=== PATIENT | male | born 1960 | race Hispanic/Latino ===

== ENCOUNTER 2017-03-25 15:08 | Inpatient (IN) | payer MEDICARE, OTHER ==
[~2017-03-25] VITALS: Ht 180.3 cm; Wt 76.2 kg
[2017-03-25 15:37] LABS: BASOPHILS # (AUTO) 0.1 (0.0-0.1); BASOPHILS % 0.4 % (0.0-1.0); EOSINOPHILS # (AUTO) 0.1 (0.0-0.4); EOSINOPHILS % 0.9 % (0.0-6.0); HEMATOCRIT 30.4 % (38.2-49.6); LYMPHOCYTES # (AUTO) 1.4 (1.0-3.2); LYMPHOCYTES % 10.6 % (18.0-39.1); MEAN CORPUSCULAR HEMOGLOBIN 29.5 pg (28-32); MEAN CORPUSCULAR HGB CONC 32.9 g/dL (31-35); MEAN CORPUSCULAR VOLUME 89.7 fL (81-99); MONOCYTES # (AUTO) 0.9 (0.2-0.8); MONOCYTES % 6.8 % (4.4-11.3); NEUTROPHILS # (AUTO) 10.4 (2.1-6.9); NEUTROPHILS % 80.8 % (38.7-80.0); PLATELET COUNT 214 x10e3/uL (140-360); RED BLOOD COUNT 3.39 x10e6/uL (4.3-5.7); RED CELL DISTRIBUTION WIDTH 13.5 % (11.7-14.4)
[2017-03-25 15:41] LABS: INR 0.95; PROTHROMBIN TIME 13.2 seconds (11.9-14.5)
[2017-03-25 15:42] LABS: PARTIAL THROMBOPLASTIN TIME 37.2 seconds (23.8-35.5)
[2017-03-25 15:51] LABS: ALBUMIN 3.1 g/dL (3.5-5.0); ALBUMIN/GLOBULIN RATIO 0.8 (0.8-2.0); ANION GAP 14.4 mmol/L (8-16); CALCIUM 8.2 mg/dL (8.4-10.2); CREATININE, SERUM 3.7 mg/dL (0.72-1.25); POTASSIUM 4.4 mmol/L (3.5-5.1)
[2017-03-25 15:53] LABS: CREATINE KINASE MB 2.5 ng/mL (0.00-5.00); TROPONIN I 0.027 ng/mL (0-0.300)
--- NOTE | 2017-03-25 16:28 | Diagnostic Imaging Report ---
PROCEDURE: A single AP view of the chest. COMPARISON: None. INDICATIONS: SHORTNESS OF BREATH FINDINGS: Lines/tubes: None. Lungs: The lungs are well inflated and clear. There is no evidence of pneumonia or pulmonary edema. Pleura: There is no pleural effusion or pneumothorax. Heart and mediastinum: The heart and the mediastinum are unremarkable. Bones: No acute bony abnormality. IMPRESSION: 1. No acute cardiopulmonary abnormalities. Krishna Barba M.D. Dictated by: Krishna Barba M.D. on 03/25/2017 at 16:35 Electronically approved by: Krishna Barba M.D. on 03/25/2017 at 16:35
[2017-03-25] MEDS ORDERED: LIDOCAINE HCL 2% LOCAL INJ 5 ML SDV VIAL INJ ONE (17:03)
[2017-03-25] MEDS ORDERED: PROPOFOL IV EMULSION 10 MG/ML 20 ML VIAL ONE (17:03)
[2017-03-25] MEDS ORDERED: FENTANYL CITRATE/PF 100MCG/2 ML INJ ONE (17:40)
[2017-03-25] MEDS ORDERED: CLONIDINE HCL 0.2 MG TAB PO ONE (17:45)
[2017-03-25] MEDS ORDERED: MIRTAZAPINE15 MG PO (17:59)
[2017-03-25] MEDS ORDERED: LUMIGAN2.5 M1 OP (17:59)
[2017-03-25] MEDS ORDERED: COMBIGAN EYE DRO5 ML OP (17:59)
[2017-03-25] MEDS ORDERED: GLIPIZIDE5 MG PO (17:59)
[2017-03-25] MEDS ORDERED: AMLODIPINE BESYL5 MG PO (17:59)
[2017-03-25] MEDS ORDERED: ATORVASTATIN CA20 MG PO (17:59)
[2017-03-25] MEDS ORDERED: FUROSEMIDE40 MG PO (17:59)
[2017-03-25] MEDS ORDERED: [UNRECOGNIZED DRUG - OTHER] PO (17:59)
[2017-03-25] MEDS ORDERED: FLUDROCORTISON0.1 MG PO (17:59)
[2017-03-25] MEDS ORDERED: MIRTAZAPINE30 MG PO (17:59)
[2017-03-25] MEDS ORDERED: ZOFRAN ODT4 MG PO (17:59)
[2017-03-25] MEDS ORDERED: VITAMIN B-12 SC (17:59)
[2017-03-25] MEDS ORDERED: CARVEDILOL3.125 MG PO (17:59)
[2017-03-25 18:25] LABS: BILIRUBIN,URINE NEGATIVE (NEGATIVE); CLARITY,URINE CLEAR (CLEAR); COLOR,URINE YELLOW (YELLOW); KETONES,URINE NEGATIVE (NEGATIVE); LEUKOCYTE ESTERASE ,URINE NEGATIVE (NEGATIVE); NITRITE,URINE NEGATIVE (NEGATIVE); PROTEIN,URINE DIPSTICK 3+ (NEGATIVE); URINE UROBILINOGEN 0.2 mg/dL (0.2 - 1)
[2017-03-25 18:35] LABS: AMORPHOUS SEDIMENT,URINE MODERATE (FEW); BACTERIA,URINE RARE /HPF; RBC,URINE 0-5 /HPF (0-5); WBC,URINE (MAN) 0-5 /HPF (0-5)
[2017-03-25] MEDS ORDERED: HYDRALAZINE HCL 20 MG/ML VIAL IV STA (18:59)
[2017-03-25] MEDS ORDERED: DEXTROSE 50% SYRINGE 50 ML IV PRN (19:15)
[2017-03-25] MEDS ORDERED: ONDANSETRON HCL INJ 2 MG/ML VIAL IV PRN (19:15)
--- NOTE | 2017-03-25 19:55 | Diagnostic Imaging Report ---
Examination: CT of the Head without Contrast History:Trauma from fall Comparison studies:MRI brain, 06/12/[address] face, 09/09/2014 Technique: Axial images were obtained from the skull base to the vertex. Coronal and sagittal images reconstructed from the axial data. Intravenous contrast: None Findings: Scalp/skull: No abnormalities. Extra-axial spaces: No masses. No fluid collections. Brain sulci: Mildly prominent. Ventricles: Mild compensatory dilatation. No hydrocephalus. Parenchyma: Again demonstrated are confluent areas of hypoattenuation in the periventricular and subcortical and pontine white matter, nonspecific. There are CSF equal density lesions in the right thalamocapsular region and left thalamus. Sellar/suprasellar region: No abnormalities. Craniocervical junction: Patent foramen magnum. No Chiari one malformation. Incidental findings: Atherosclerotic calcification of the cavernous and supraclinoid internal carotid and V4 segments of the bilateral vertebral arteries. . Impression: 1. No new or acute abnormalities. No change from prior brain MRI performed June 07, 2015 when accounting for differences in technique. 2. Mild generalized volume loss. 3. Moderate white matter changes, related to patient's history of multiple sclerosis. 4. Chronic changes in the right thalamocapsular region and left thalamus, which could be related to gliotic phase of demyelinating disease. The images and preliminary report were reviewed and signed by Dr. Citlalli Azar, neuroradiology faculty, on 03/25/2017 at 1951 hours. Signed by: Dr. Citlalli Azar M.D. on 03/25/2017 7:51 PM
[2017-03-25] MEDS: SODIUM CHLORIDE 0.9% 1000ML 1,000 ML IV SCH (20:30)
[2017-03-25] MEDS: INSULIN REGULAR, HUMAN 100 UNIT/1 ML 3ML VIAL SQ SCH (21:00)
[2017-03-25 21:10] VITALS: BP 161/89
[2017-03-25 21:20] VITALS: BP 161/89
[2017-03-26] VITALS (7 sets, daily range): BP systolic 142–191; BP diastolic 58–103
[2017-03-26] MEDS: SODIUM CHLORIDE 0.9% 1000ML 1,000 ML IV SCH ×4 (03:58→22:30)
[2017-03-26 06:32] LABS: BASOPHILS % 0.4 % (0.0-1.0); EOSINOPHILS # (AUTO) 0.1 (0.0-0.4); EOSINOPHILS % 1.1 % (0.0-6.0); HEMATOCRIT 30.1 % (38.2-49.6); HEMOGLOBIN 9.9 g/dL (14.0-18.0); LYMPHOCYTES # (AUTO) 0.8 (1.0-3.2); LYMPHOCYTES % 8.4 % (18.0-39.1); MEAN CORPUSCULAR HEMOGLOBIN 29.6 pg (28-32); MEAN CORPUSCULAR HGB CONC 32.9 g/dL (31-35); MEAN CORPUSCULAR VOLUME 89.9 fL (81-99); MONOCYTES # (AUTO) 0.6 (0.2-0.8); MONOCYTES % 6.7 % (4.4-11.3); NEUTROPHILS # (AUTO) 7.8 (2.1-6.9); NEUTROPHILS % 82.7 % (38.7-80.0); PLATELET COUNT 199 x10e3/uL (140-360); RED BLOOD COUNT 3.35 x10e6/uL (4.3-5.7); RED CELL DISTRIBUTION WIDTH 13.6 % (11.7-14.4)
[2017-03-26 06:54] LABS: ANION GAP 11.9 mmol/L (8-16); CALCIUM 7.9 mg/dL (8.4-10.2); CREATININE, SERUM 3.48 mg/dL (0.72-1.25); POTASSIUM 3.9 mmol/L (3.5-5.1)
[2017-03-26] MEDS: INSULIN REGULAR, HUMAN 100 UNIT/1 ML 3ML VIAL SQ SCH ×4 (07:30→21:00)
[2017-03-26] MEDS: AMLODIPINE BESYLATE 5 MG TAB PO SCH (12:15)
[2017-03-26] MEDS ORDERED: GLIPIZIDE 5 MG TAB PO SCH (12:15)
--- NOTE | 2017-03-26 13:38 | History and Physical ---
PRIMARY CARE PROVIDER: Dr. Carter CHIEF COMPLAINT: Acute kidney injury. HISTORY OF PRESENT ILLNESS: Mr. Edge is a 56-year-old gentleman who got a call from the clinic after having routine blood work and was told his kidneys were failing, and he needed to come to the ER for evaluation. REVIEW OF SYSTEMS: He denies fever, chills or weight loss. He does have generalized weakness. He denies shortness of breath, wheezing or cough. He denies chest pain or palpitations. He denies abdominal pain, nausea, vomiting or melena. He denies dysuria or flank pain. He denies rash or pruritus. He denies joint pain or swelling. He denies bleeding or bruising. He denies headache, vertigo or loss of consciousness. He has generalized weakness and some difficulty swallowing. He denies depression, agitation, homicidal or suicidal ideation. PAST MEDICAL HISTORY: Significant for longstanding hypertension, type-2 diabetes and multiple sclerosis. He denies any history of heart disease. MEDICATIONS: His regular medications include: 1. Norvasc 5 mg daily. 2. Coreg 6.25 mg twice daily. 3. Lipitor 40 mg at bedtime. 4. Glaucoma eye drops, Lumigan and Combigan. 5. Glipizide 2.5 mg daily. 6. Remeron 15 mg at bedtime. 7. Lasix 20 mg daily. 8. Florinef 0.1 mg daily. 9. Zinbryta 150 mg monthly for the multiple sclerosis. SURGICAL HISTORY: The patient has no significant surgical history. ALLERGIES: HE HAS NO KNOWN DRUG ALLERGIES. FAMILY HISTORY: Remarkable for some scattered hypertension and diabetes. SOCIAL HISTORY: He is a nonsmoker. The patient is mostly bedbound. He has unsteady gait. He is and bilingual, but Macedonian is his primary language. He does speak a fair amount of Bruneian. He does not smoke, drink or use illegal drugs, again mostly bedbound, requiring a lot of assistance for most activities. PHYSICAL EXAMINATION PSYCHIATRIC: He is alert and oriented times 3 with normal mood and affect. CONSTITUTIONAL: He has a normal body habitus. He is in no acute distress. VITAL SIGNS: Blood pressure 146/90. Pulse 85 and regular. Respiratory rate 17. O2 sat 97%. Temperature 97.9. HEENT: Head is atraumatic. His eyes are anicteric with clear conjunctivae. Ears and nares are without erythema or discharge. Oropharynx is clear. NECK: Supple with no mass or thyromegaly. LYMPHATIC SYSTEM: He has no palpable cervical, axillary or inguinal adenopathy. CARDIOVASCULAR: His heart has a regular rate and rhythm without murmur or extra heart sound. He has no carotid bruit. He has no peripheral edema. He has palpable dorsal pedal pulses. RESPIRATORY: Lungs are clear to auscultation and percussion with normal respiratory effort. GASTROINTESTINAL: Abdomen is soft without organomegaly, masses or tenderness. He has normal bowel sounds present. CUTANEOUS: Skin is warm and dry to touch with no rash or skin breakdown. NEUROLOGIC: Exam is nonfocal. He does have some generalized weakness and some dysphagia and dysarthria. DIAGNOSTIC STUDIES: Chest x-ray shows no acute disease. CT scan of brain shows diffuse white matter changes consistent with multiple sclerosis. UA is clear. Initial troponin is 0.027. His initial chemistry showed normal electrolytes, CO2 24, creatinine 114, glucose 3.70, BUN 39, calcium 8.4, and GFR 17. IMPRESSION AND PLAN 1. Acute kidney injury on chronic kidney disease, stage 3, during the past 2 weeks. Will increase the IV fluids. Will continue with IV hydration. Nephrology has been consulted to assess whether the patient's kidney function will return or not. 2. Multiple sclerosis with possible flare-up. Neurology will be consulted for assistance in management. Will get physical and occupational therapy to work with the patient as well as a swallow eval to test his swallowing ability. He may need placement in rehab. 3. Hypertension is fairly well controlled. Will continue his Norvasc and Coreg and p.r.n. IV hydralazine. 4. Type-2 diabetes, also fairly well controlled. Will continue his glipizide plus sliding scale insulin. 5. For prophylaxis, the patient will be using Lovenox for DVT prophylaxis and Pepcid for GI prophylaxis. Job#: [id number]
[2017-03-26] MEDS: HYDRALAZINE HCL 20 MG/ML VIAL IV PRN (15:46)
--- NOTE | 2017-03-26 15:50 | Consultation ---
DATE OF CONSULTATION: March 25, 2017 Patient was seen in the emergency room. Mr. Denis Edge is known to our nephrology service. 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 Apparently, he has been receiving his immunoglobulin therapy for multiple sclerosis with Dr. Van. He received his treatment. Upon followup, I am told that Dr. Van found him to be confused. She sent him to the emergency room. He is currently awake and alert. No apparent distress. Quite hypertensive. He has received 1 dose of p.o. clonidine. I am going to give him hydralazine IV. His home medications have not been reviewed yet. He is awake, alert, lying supine. Denies fever, chills, chest pain, shortness of breath. ALLERGIES: NO APPARENT DRUG ALLERGIES. HOME MEDICATIONS: Amlodipine, atorvastatin, carvedilol, fludrocortisone 0.1 mg daily, furosemide 40 mg daily, glipizide, mirtazapine, ondansetron, B12 and Zinbryta 150 mg p.o. monthly. He is also on bimatoprost eye drops. For dose schedule, please see MAR. SOCIAL HISTORY: Does not smoke or drink. FAMILY HISTORY: Significant for hypertension. PAST MEDICAL HISTORY 1. Diabetes. 2. Chronic kidney disease, stage 3, possibly 4. Baseline creatinine 3.5. LABS: Chemistries show serum sodium 140, potassium 4.4, bicarbonate 24, creatinine 3.7, calcium 8.8. CK 157. LFTs within normal range. CBC shows white count 12.8, hemoglobin 10. His urine and blood cultures have been drawn. Empiric antibiotics have been started. CURRENT MEDICATIONS: Please see MAR. PHYSICAL EXAMINATION GENERAL: Awake, alert, lying supine. No apparent distress. VITALS: Blood pressure 200/90. Pulse rate 90. Afebrile. HEAD AND NECK: Left corneal opacification noted. Neck veins flat. LUNGS: Relatively clear. HEART: S1, S2 audible. ABDOMEN: Otherwise soft and nontender. LOWER EXTREMITIES: No edema. IMPRESSION AND PLAN: Relatively stable from renal standpoint. Serum creatinine very close to baseline. Appears a bit dehydrated. Will start IV fluids and empiric antibiotics. Rule out infection. Rule out drug interaction. Mental status appears relatively better, definitely not the story I heard from my associate. Please see orders. Workup ordered. Job#: [id number] DANILO
[2017-03-26] MEDS: DIPHENOXYLATE/ATROPINE TAB PO PRN (16:10)
[2017-03-26] MEDS: FAMOTIDINE 20 MG TAB PO SCH (16:30)
[2017-03-26] MEDS ORDERED: BRIMONIDINE/TIMOLOL (OPTH SOLN 5 ML DRPETTE OP SCH (17:00)
[2017-03-26] MEDS: ENOXAPARIN SOD INJ 40 MG/0.4 ML SYR SC SCH (17:00)
[2017-03-26] MEDS: CARVEDILOL 3.125 MG TAB PO SCH (17:00)
[2017-03-26] MEDS: SODIUM BICARBONATE 650 MG TAB PO SCH (17:00)
--- NOTE | 2017-03-26 19:43 | Consultation ---
DATE OF CONSULTATION: March 26, 2017 NEUROLOGY CONSULTATION TIME: 5:[address] Prasanth Anthony. REASON FOR CONSULTATION: MS. He is a 56-year-old male, who, approximately 5 years, according to his , who was present, was diagnosed with multiple sclerosis. Since then, has been seen by Thursday and now is getting Zinbryta 150 mg once a month. The patient has history also of hypertension, diabetes mellitus, retinopathy, legally blind on the left and decreased vision on the right. Apparently, they did a blood workup. They found there was some renal insufficiency and he was somewhat confused and generalized weak, the reason for which he was recommended to come to the emergency room and reason for the evaluation. PAST MEDICAL HISTORY: As mentioned above, he has history of diabetes mellitus type 2, significant hypertension and he was diagnosed with multiple sclerosis. There are no headaches. No swallowing difficulty. No chest pain. No palpitation. The patient seems to be, according to his , more alert now and less confused. LIST OF MEDICATION AT HOME: As mentioned, he is taking tramadol 50 mg at daytime, glipizide, Lasix, Florinef, Lipitor, Coreg and Norvasc, and also the Zinbryta 150 mg monthly, which is immunotherapy for the multiple sclerosis. PAST SURGICAL HISTORY: No surgical history. ALLERGIES: NO DRUG ALLERGIES. . SOCIAL HISTORY: He lives with his . He speaks Portuguese and Italian. REVIEW OF SYSTEMS: He denies fever, chills. No chest pain. No palpitation. No diarrhea. No abdominal pain. NEURO EXAMINATION: He is eating at table. According to his , he ambulates with a walker a little bit. He is losing his balance more. He follows commands well. His pace is somewhat slower. Currently, he is legally blind in the left eye because of retinopathy. There is a gaze preference to the right. Pupils equal and reactive. The lateral gaze is rather weak. No facial weakness. Tongue protrudes midline. MOTOR POWER: He is able to lift his arms against gravity. There is no gross weakness in the proximal distal muscle. Hand shampoo person is 5/5. Flexion of the hips is 4/5, flexion/extension of the knees 5/5. Dorsiflexion of the ankles 5/5. Plantar flexion 5/5. Deep tendon reflex of biceps, radials 1+. Knee jerk, ankle jerk absent bilaterally. Plantar stimulation down bilaterally. Gait was deferred. HEENT: Head normocephalic. NECK: Supple. Carotid pulsations were present bilaterally. There were no bruits. LABORATORY WORKUP: CBC shows a white count 9300 with hemoglobin 9.9, hematocrit 30.1, platelets 199,000. Chemistry: On admission, sodium 140, potassium 4.4. BUN 39, creatinine 3.70. Estimated GFR 17, is low. Today, BUN is still 39, creatinine 3.48, which is down. Estimated GFR is 18. Glucose 132. Liver enzymes are normal. Urinalysis negative. IMAGING: CT scan of the brain shows no new or acute abnormality. No change from previous MRI performed June 07, 2016 volume, some mild white matter changes related patient's history of multiple sclerosis. IMPRESSION 1. Acute kidney injury on chronic kidney disease. 2. History of multiple sclerosis. I do not feel there is any evidence to suspect acute relapse at the present time. 3. Hypertension. 4. Type 2 diabetes mellitus. We discussed with the , Mel. We are going to do an MRI of the brain without contrast tomorrow because of the ___ situation. Will do an MRI of the brain and the cervical spine without contrast. Job#: [id number] YANNI
[2017-03-26] MEDS: BIMATOPROST(OPTH) 2.5 ML BOTTLE OP SCH (21:00)
[2017-03-26] MEDS: ATORVASTATIN 40 MG TAB PO SCH (22:30)
[2017-03-26] MEDS: MIRTAZAPINE 15 MG TAB PO SCH (22:30)
[2017-03-27 00:48] VITALS: BP 144/86
[2017-03-27 05:12] VITALS: BP 146/87
[2017-03-27 06:24] LABS: BASOPHILS % 0.4 % (0.0-1.0); EOSINOPHILS # (AUTO) 0.1 (0.0-0.4); EOSINOPHILS % 0.7 % (0.0-6.0); HEMATOCRIT 28.4 % (38.2-49.6); HEMOGLOBIN 9.2 g/dL (14.0-18.0); LYMPHOCYTES % 11.7 % (18.0-39.1); MEAN CORPUSCULAR HEMOGLOBIN 29.6 pg (28-32); MEAN CORPUSCULAR HGB CONC 32.4 g/dL (31-35); MEAN CORPUSCULAR VOLUME 91.3 fL (81-99); MONOCYTES # (AUTO) 0.5 (0.2-0.8); MONOCYTES % 6.2 % (4.4-11.3); NEUTROPHILS # (AUTO) 6.7 (2.1-6.9); NEUTROPHILS % 79.8 % (38.7-80.0); PLATELET COUNT 176 x10e3/uL (140-360); RED BLOOD COUNT 3.11 x10e6/uL (4.3-5.7); RED CELL DISTRIBUTION WIDTH 13.5 % (11.7-14.4)
[2017-03-27 06:46] LABS: ANION GAP 13.6 mmol/L (8-16); CALCIUM 7.7 mg/dL (8.4-10.2); CREATININE, SERUM 3.18 mg/dL (0.72-1.25); MAGNESIUM 1.4 MG/DL (1.3-2.1); POTASSIUM 3.6 mmol/L (3.5-5.1)
[2017-03-27 07:03] LABS: FREE T4 (FREE THYROXINE) 0.98 ng/dL (0.8-1.8); THYROID STIMULATING HORMONE 1.447 uIU/mL (0.350-4.940)
[2017-03-27] MEDS: INSULIN REGULAR, HUMAN 100 UNIT/1 ML 3ML VIAL SQ SCH ×4 (07:30→20:00)
[2017-03-27 08:25] VITALS: BP 177/86
[2017-03-27] MEDS: GLIPIZIDE 5 MG TAB PO SCH (08:30)
[2017-03-27] MEDS: FAMOTIDINE 20 MG TAB PO SCH ×2 (08:30→16:48)
[2017-03-27] MEDS: BRIMONIDINE/TIMOLOL (OPTH SOLN 5 ML DRPETTE OP SCH ×2 (08:41→16:48)
[2017-03-27] MEDS: SODIUM BICARBONATE 650 MG TAB PO SCH ×2 (08:41→16:48)
[2017-03-27] MEDS: AMLODIPINE BESYLATE 5 MG TAB PO SCH (08:41)
[2017-03-27] MEDS: CARVEDILOL 3.125 MG TAB PO SCH ×2 (08:41→16:48)
[2017-03-27] MEDS: DIPHENOXYLATE/ATROPINE TAB PO PRN (10:34)
[2017-03-27] MEDS: SODIUM CHLORIDE 0.9% 1000ML 1,000 ML IV SCH (11:09)
[2017-03-27] MEDS: HYDRALAZINE HCL 20 MG/ML VIAL IV PRN ×2 (12:37→20:45)
[2017-03-27 12:38] VITALS: BP 181/97
[2017-03-27] MEDS: ENOXAPARIN SOD INJ 40 MG/0.4 ML SYR SC SCH (16:48)
[2017-03-27] MEDS: LACTOBACILLUS ACIDOPHILUS CAPSULE PO SCH (17:44)
[2017-03-27] MEDS: CHOLESTYRAMINE 4 GM PACKET PO SCH (17:44)
[2017-03-27 20:28] VITALS: BP 185/91
[2017-03-27] MEDS: BIMATOPROST(OPTH) 2.5 ML BOTTLE OP SCH (20:45)
[2017-03-27] MEDS: ATORVASTATIN 40 MG TAB PO SCH (20:45)
[2017-03-27] MEDS: MIRTAZAPINE 15 MG TAB PO SCH (20:45)
[2017-03-28] VITALS: BP 149/71
[2017-03-28] MEDS: HYDRALAZINE HCL 20 MG/ML VIAL IV PRN ×2 (06:21→21:30)
[2017-03-28 06:25] LABS: BASOPHILS % 0.1 % (0.0-1.0); EOSINOPHILS # (AUTO) 0.1 (0.0-0.4); EOSINOPHILS % 0.8 % (0.0-6.0); HEMATOCRIT 26.7 % (38.2-49.6); HEMOGLOBIN 9.1 g/dL (14.0-18.0); LYMPHOCYTES # (AUTO) 1.2 (1.0-3.2); LYMPHOCYTES % 11.5 % (18.0-39.1); MEAN CORPUSCULAR HEMOGLOBIN 30.2 pg (28-32); MEAN CORPUSCULAR HGB CONC 34.1 g/dL (31-35); MEAN CORPUSCULAR VOLUME 88.7 fL (81-99); MONOCYTES # (AUTO) 1.1 (0.2-0.8); MONOCYTES % 10.3 % (4.4-11.3); NEUTROPHILS # (AUTO) 7.9 (2.1-6.9); NEUTROPHILS % 76.2 % (38.7-80.0); PLATELET COUNT 184 x10e3/uL (140-360); RED BLOOD COUNT 3.01 x10e6/uL (4.3-5.7); RED CELL DISTRIBUTION WIDTH 13.7 % (11.7-14.4)
[2017-03-28 06:45] LABS: ANION GAP 12.5 mmol/L (8-16); CALCIUM 7.7 mg/dL (8.4-10.2); CREATININE, SERUM 3.12 mg/dL (0.72-1.25); POTASSIUM 3.5 mmol/L (3.5-5.1)
[2017-03-28] MEDS: INSULIN REGULAR, HUMAN 100 UNIT/1 ML 3ML VIAL SQ SCH ×4 (07:30→21:00)
[2017-03-28 08:00] VITALS: BP 152/70
[2017-03-28] MEDS: GLIPIZIDE 5 MG TAB PO SCH (09:42)
[2017-03-28] MEDS: FAMOTIDINE 20 MG TAB PO SCH ×2 (09:42→17:05)
[2017-03-28] MEDS: BRIMONIDINE/TIMOLOL (OPTH SOLN 5 ML DRPETTE OP SCH ×2 (09:42→17:05)
[2017-03-28] MEDS: SODIUM BICARBONATE 650 MG TAB PO SCH ×2 (09:43→17:05)
[2017-03-28] MEDS: LACTOBACILLUS ACIDOPHILUS CAPSULE PO SCH ×2 (09:43→17:05)
[2017-03-28] MEDS: CARVEDILOL 3.125 MG TAB PO SCH ×2 (09:43→17:05)
[2017-03-28] MEDS: AMLODIPINE BESYLATE 5 MG TAB PO SCH (09:43)
[2017-03-28] MEDS: CHOLESTYRAMINE 4 GM PACKET PO SCH ×2 (09:43→17:05)
[2017-03-28] MEDS: LORAZEPAM INJ 2 MG/ML VIAL IV PRN (10:00)
[2017-03-28 12:00] VITALS: BP 147/69
[2017-03-28] MEDS ORDERED: POTASSIUM CHLORIDE 20 MEQ TAB CR PO ONE (12:30)
[2017-03-28] MEDS ORDERED: HALOPERIDOL LACTATE 5 MG/ML VIAL IM ONE (14:00)
[2017-03-28 16:00] VITALS: BP 132/61
[2017-03-28] MEDS: ENOXAPARIN SOD INJ 40 MG/0.4 ML SYR SC SCH (17:05)
[2017-03-28] MEDS: BIMATOPROST(OPTH) 2.5 ML BOTTLE OP SCH (21:30)
[2017-03-28] MEDS: MIRTAZAPINE 15 MG TAB PO SCH (21:30)
[2017-03-28] MEDS: ATORVASTATIN 40 MG TAB PO SCH (21:30)
[2017-03-29] MEDS: HALOPERIDOL LACTATE 5 MG/ML VIAL IM PRN ×2 (00:55→21:45)
[2017-03-29] MEDS: LORAZEPAM INJ 2 MG/ML VIAL IV PRN (04:00)
[2017-03-29] MEDS: INSULIN REGULAR, HUMAN 100 UNIT/1 ML 3ML VIAL SQ SCH ×4 (07:30→20:21)
[2017-03-29 08:00] VITALS: BP 148/70
[2017-03-29] MEDS: GLIPIZIDE 5 MG TAB PO SCH (08:00)
[2017-03-29] MEDS: FAMOTIDINE 20 MG TAB PO SCH ×2 (08:00→17:30)
[2017-03-29 08:12] LABS: ANION GAP 16.1 mmol/L (8-16); CALCIUM 8.2 mg/dL (8.4-10.2); CREATININE, SERUM 3.04 mg/dL (0.72-1.25); POTASSIUM 4.1 mmol/L (3.5-5.1)
[2017-03-29] MEDS: BRIMONIDINE/TIMOLOL (OPTH SOLN 5 ML DRPETTE OP SCH ×2 (09:06→17:58)
[2017-03-29] MEDS: LACTOBACILLUS ACIDOPHILUS CAPSULE PO SCH ×2 (09:06→17:58)
[2017-03-29] MEDS: SODIUM BICARBONATE 650 MG TAB PO SCH ×2 (09:06→17:58)
[2017-03-29] MEDS: CHOLESTYRAMINE 4 GM PACKET PO SCH (09:06)
[2017-03-29] MEDS: CARVEDILOL 3.125 MG TAB PO SCH ×2 (09:07→17:58)
[2017-03-29] MEDS: AMLODIPINE BESYLATE 5 MG TAB PO SCH (09:07)
[2017-03-29 12:00] VITALS: BP 155/90
[2017-03-29] MEDS ORDERED: DEXTROSE 5% 500ML 500 ML IV ONE (13:30)
[2017-03-29 16:00] VITALS: BP 186/96
[2017-03-29] MEDS: HYDRALAZINE HCL 20 MG/ML VIAL IV PRN (17:58)
[2017-03-29] MEDS: ENOXAPARIN SOD INJ 40 MG/0.4 ML SYR SC SCH (17:58)
[2017-03-29 20:21] VITALS: BP 127/74
[2017-03-29] MEDS: BIMATOPROST(OPTH) 2.5 ML BOTTLE OP SCH (20:36)
[2017-03-29] MEDS: ATORVASTATIN 40 MG TAB PO SCH (20:36)
[2017-03-29] MEDS: MIRTAZAPINE 15 MG TAB PO SCH (20:36)
[2017-03-30] VITALS (7 sets, daily range): BP systolic 126–215; BP diastolic 66–98
[2017-03-30] MEDS: HYDRALAZINE HCL 20 MG/ML VIAL IV PRN ×2 (05:58→21:32)
[2017-03-30] MEDS: HALOPERIDOL LACTATE 5 MG/ML VIAL IM PRN (05:58)
[2017-03-30 07:05] LABS: CALCIUM 8.3 mg/dL (8.4-10.2); CREATININE, SERUM 2.96 mg/dL (0.72-1.25)
[2017-03-30] MEDS: INSULIN REGULAR, HUMAN 100 UNIT/1 ML 3ML VIAL SQ SCH ×4 (07:30→21:58)
[2017-03-30] MEDS: GLIPIZIDE 5 MG TAB PO SCH (08:30)
[2017-03-30] MEDS: FAMOTIDINE 20 MG TAB PO SCH ×2 (08:30→17:00)
[2017-03-30] MEDS: BRIMONIDINE/TIMOLOL (OPTH SOLN 5 ML DRPETTE OP SCH ×2 (09:43→17:40)
[2017-03-30] MEDS: HYDRALAZINE HCL 10 MG TAB PO SCH ×2 (09:43→17:40)
[2017-03-30] MEDS: CARVEDILOL 3.125 MG TAB PO SCH ×2 (09:44→17:40)
[2017-03-30] MEDS: LACTOBACILLUS ACIDOPHILUS CAPSULE PO SCH ×2 (09:44→17:40)
[2017-03-30] MEDS: AMLODIPINE BESYLATE 5 MG TAB PO SCH (09:44)
[2017-03-30] MEDS: SODIUM BICARBONATE 650 MG TAB PO SCH ×2 (09:44→17:40)
[2017-03-30] MEDS: DEXTROSE 5%/0.45% SOD CHL 1,000 ML IV SCH (11:45)
[2017-03-30] MEDS: ENOXAPARIN SOD INJ 40 MG/0.4 ML SYR SC SCH (17:40)
[2017-03-30] MEDS ORDERED: OLANZAPINE 5 MG TAB PO PRN (18:00)
--- NOTE | 2017-03-30 19:57 | Consultation ---
DATE OF CONSULTATION: March 30, 2017 PSYCHIATRIC INITIAL CONSULT REASON FOR CONSULTATION: For treatment and evaluation of the patient's confusion and agitation. HISTORY OF PRESENTING ILLNESS: The patient is a 56-year-old male with history of multiple sclerosis. He is admitted to [facility] and psychiatric consult is called to evaluate the patient's confusion and agitation during his inpatient stay. Upon evaluation today, the patient is found to be lying on his bed. He appears to be very confused and is not able to answer any questions for this assessment. Correlated information is obtained from his who was present in the room during this assessment. This assessment was done with the help of an product finisher. The patient's reports that he has history of multiple sclerosis and at baseline he does have some confusion and has difficulty communicating, but since he has been in the hospital he is more confused than before. He is more dependent now and is not able to eat by himself which he used to do at home. He is not able to sleep and eat very well. He is being intermittently agitated and combative, receiving p.r.n. medications. does not believe that the patient is at his baseline. As per the nursing staff, the patient has been increasingly confused, restless and agitated. He has been receiving p.r.n. Ativan and Haldol, and the family is concerned about these p.r.n. medications. PAST PSYCHIATRIC HISTORY: The patient has never been treated by a psychiatrist in the past. He has never attempted any suicide. He does not drink alcohol. FAMILY HISTORY: The patient does not have any family history of psychiatric illness. SOCIAL HISTORY: The patient is living with his who is very supportive of him. CURRENT LABS: WBC 10.3, hemoglobin 9.1, hematocrit 26.7, platelets 184,000, sodium 142, potassium 4, chloride 107, carbon dioxide 23, BUN 20, creatinine 2.96. CURRENT MEDICATIONS 1. Amlodipine. 2. Lipitor. 3. Coreg. 4. Lovenox. 5. Pepcid. 6. Glipizide. 7. Haldol 5 mg IM q.8 h. p.r.n. for agitation. 8. Hydralazine. 9. Remeron 15 mg p.o. q. nightly. MENTAL STATUS EXAMINATION: The patient is a middle-aged male who is currently lying on his bed. He appears confused. He is not able to participate for a complete mental status examination at this time. AXIS I: 1. Nonspecific psychosis. 2. Delirium, multifactorial. AXIS II: Deferred. AXIS III: As per medical history. AXIS IV: Moderate to severe. AXIS V: Global assessment of functioning is 35. RECOMMENDATIONS: 1. Reduce Haldol to 2.5 mg IM q.6 h. p.r.n. for agitation. 2. Add Zyprexa 2.5 mg p.o. q.6 h. p.r.n. for agitation. 3. Discontinue Remeron. 4. We will continue to follow this patient during his inpatient stay for management of his psychiatric symptoms. Thank you very much for this consult. Job#: [id number] GH
[2017-03-30] MEDS: ATORVASTATIN 40 MG TAB PO SCH (21:30)
[2017-03-30] MEDS: BIMATOPROST(OPTH) 2.5 ML BOTTLE OP SCH (21:31)
[2017-03-31] VITALS (7 sets, daily range): BP systolic 121–190; BP diastolic 64–99
[2017-03-31] MEDS ORDERED: HALOPERIDOL LACTATE 5 MG/ML VIAL IM PRN
[2017-03-31] MEDS: DEXTROSE 5%/0.45% SOD CHL 1,000 ML IV SCH ×2 (00:05→13:25)
[2017-03-31] MEDS: HYDRALAZINE HCL 20 MG/ML VIAL IV PRN ×2 (04:51→18:34)
[2017-03-31 06:29] LABS: ANION GAP 14.1 mmol/L (8-16); CALCIUM 8.2 mg/dL (8.4-10.2); CREATININE, SERUM 3.06 mg/dL (0.72-1.25); POTASSIUM 4.1 mmol/L (3.5-5.1)
[2017-03-31] MEDS: INSULIN REGULAR, HUMAN 100 UNIT/1 ML 3ML VIAL SQ SCH ×4 (07:30→21:00)
[2017-03-31] MEDS: GLIPIZIDE 5 MG TAB PO SCH (08:18)
[2017-03-31] MEDS: FAMOTIDINE 20 MG TAB PO SCH ×2 (08:19→16:20)
[2017-03-31] MEDS: LACTOBACILLUS ACIDOPHILUS CAPSULE PO SCH ×2 (08:20→16:17)
[2017-03-31] MEDS: AMLODIPINE BESYLATE 5 MG TAB PO SCH (08:20)
[2017-03-31] MEDS: CARVEDILOL 3.125 MG TAB PO SCH ×2 (08:20→16:19)
[2017-03-31] MEDS: HYDRALAZINE HCL 10 MG TAB PO SCH ×2 (08:29→16:20)
[2017-03-31] MEDS: BRIMONIDINE/TIMOLOL (OPTH SOLN 5 ML DRPETTE OP SCH ×2 (08:52→16:20)
[2017-03-31] MEDS ORDERED: HYDRALAZINE HCL 20 MG/ML VIAL IV PRN (10:15)
[2017-03-31] MEDS: CLONIDINE HCL 0.3MG/24 HR PATCH TOP SCH (11:21)
[2017-03-31] MEDS: SODIUM BICARBONATE 650 MG TAB PO SCH ×2 (11:45→16:19)
[2017-03-31] MEDS ORDERED: NIFEDIPINE CR 30 MG TAB PO SCH (12:00)
[2017-03-31] MEDS ORDERED: NIFEDIPINE 10 MG CAP PO SCH (15:00)
[2017-03-31] MEDS: ENOXAPARIN SOD INJ 40 MG/0.4 ML SYR SC SCH (16:19)
--- NOTE | 2017-03-31 16:31 | Diagnostic Imaging Report ---
History: AMS Comparison studies: MRI brain 04/05/2012. MRI brain 06/07/2015 report, images are not available for comparison. Technique: Sagittal T2; axial DWI, FLAIR, MPGR, T1, Coronal FLAIR. Intravenous contrast: None Findings: Significantly limited study by motion artifact. Scalp: Normal in signal . No masses . Bone marrow: Normal in signal intensity. Extra-axial: No masses, no fluid collections. Brain sulci: Mildly prominent. Ventricles: Mildly prominent . No hydrocephalus . Parenchyma: Scattered and confluent T2/FLAIR hyperintensities of the periventricular and deep white matter, corpus callosum, callosal septal interface, right striatocapsular region, left lauren and brachium pontis. No masses, hemorrhage or acute cortical vascular insults. Suprasellar region: No abnormalities. Craniocervical junction: No abnormalities. Patent foramen magnum. No Chiari one malformation. Vessels: Normal flow-voids in the arteries and sinuses. IMPRESSION: 1. No acute abnormalities. 2. Moderate supratentorial and infratentorial white matter changes, nonspecific, this could be seen chronic ischemic changes, demyelinating processes or other leukoencephalopathy. Comparing to the MRI brain 06/08/2015 report these changes appears grossly stable. Signed by: DR Jimbo Chappell M.D. on 03/31/2017 4:27 PM
[2017-03-31] MEDS: BIMATOPROST(OPTH) 2.5 ML BOTTLE OP SCH (21:00)
[2017-04-01] MEDS: HYDRALAZINE HCL 20 MG/ML VIAL IV PRN ×3 (00:44→08:24)
[2017-04-01 01:26] VITALS: BP 196/82
[2017-04-01] MEDS: DEXTROSE 5%/0.45% SOD CHL 1,000 ML IV SCH ×2 (06:05→18:00)
[2017-04-01 06:08] VITALS: BP 169/81
[2017-04-01 06:29] LABS: BASOPHILS % 0.3 % (0.0-1.0); EOSINOPHILS # (AUTO) 0.1 (0.0-0.4); HEMOGLOBIN 9.1 g/dL (14.0-18.0); LYMPHOCYTES # (AUTO) 1.8 (1.0-3.2); LYMPHOCYTES % 19.5 % (18.0-39.1); MEAN CORPUSCULAR HGB CONC 33.7 g/dL (31-35); MEAN CORPUSCULAR VOLUME 89.1 fL (81-99); MONOCYTES # (AUTO) 0.7 (0.2-0.8); NEUTROPHILS # (AUTO) 6.2 (2.1-6.9); NEUTROPHILS % 69.1 % (38.7-80.0); PLATELET COUNT 193 x10e3/uL (140-360); RED BLOOD COUNT 3.03 x10e6/uL (4.3-5.7); RED CELL DISTRIBUTION WIDTH 13.7 % (11.7-14.4)
[2017-04-01 07:01] LABS: ANION GAP 12.6 mmol/L (8-16); CALCIUM 7.7 mg/dL (8.4-10.2); CREATININE, SERUM 3.18 mg/dL (0.72-1.25); POTASSIUM 3.6 mmol/L (3.5-5.1)
[2017-04-01] MEDS: INSULIN REGULAR, HUMAN 100 UNIT/1 ML 3ML VIAL SQ SCH ×4 (07:30→19:54)
[2017-04-01 08:00] VITALS: BP 177/92
[2017-04-01] MEDS: FAMOTIDINE 20 MG/2 ML VIAL IV SCH ×2 (08:17→18:01)
[2017-04-01] MEDS: BRIMONIDINE/TIMOLOL (OPTH SOLN 5 ML DRPETTE OP SCH ×2 (08:18→18:01)
[2017-04-01 08:27] LABS: LYMPHOCYTES % (MANUAL) 14 % (19-48); MONOCYTES % (MANUAL) 7 % (3.4-9.0); NEUTROPHILS % (MANUAL) 79 % (40-74); PLATELET ESTIMATE ADEQUATE; PLATELET MORPHOLOGY COMMENT NORMAL; RBC MORPHOLOGY COMMENT NORMAL
[2017-04-01] MEDS ORDERED: AMLODIPINE BESYLATE 10 MG TAB PO SCH (09:00)
[2017-04-01 16:00] VITALS: BP 136/88
[2017-04-01] MEDS ORDERED: HALOPERIDOL LACTATE 5 MG/ML VIAL IM PRN ×2 (17:45)
[2017-04-01] MEDS ORDERED: RISPERIDONE 0.5 MG TAB PO PRN (17:45)
[2017-04-01] MEDS: ENOXAPARIN SOD INJ 40 MG/0.4 ML SYR SC SCH (18:01)
--- NOTE | 2017-04-01 18:29 | Progress Note ---
DATE: March 31, 2017 PSYCHIATRIC PROGRESS NOTE The patient was not seen yesterday, and today because he had a procedure on both days. However, nursing staff and family members reported that the patient has been lethargic throughout the day. Nursing staff states that the patient is appropriate and answering questions appropriately. He is not agitated or combative in the daytime. He is getting p.r.n. IM medications on both days. Last night he got Haldol IM at around 2 a.m. Zyprexa p.r.n. was discontinued. ASSESSMENT: Unspecified psychosis/delirium. PLAN: Reduce Haldol to 1 mg IM q.6 h. p.r.n. agitation. Add Risperdal 0.5 mg p.o. q.6 h. p.r.n. for agitation. Will attempt to see the patient tomorrow. DICTATED BY TREV BEST Job#: [id number] JAMARI
[2017-04-01 20:00] VITALS: BP 155/83
[2017-04-01] MEDS: BIMATOPROST(OPTH) 2.5 ML BOTTLE OP SCH (20:50)
[2017-04-02] VITALS: BP 142/91
[2017-04-02 04:00] VITALS: BP 151/70
[2017-04-02] MEDS: DEXTROSE 5%/0.45% SOD CHL 1,000 ML IV SCH ×2 (05:38→20:05)
[2017-04-02 06:17] LABS: INR 0.92; PROTHROMBIN TIME 12.8 seconds (11.9-14.5)
[2017-04-02 06:18] LABS: PARTIAL THROMBOPLASTIN TIME 38.1 seconds (23.8-35.5)
[2017-04-02 06:23] LABS: ANION GAP 12.8 mmol/L (8-16); CALCIUM 7.8 mg/dL (8.4-10.2); CREATININE, SERUM 3.22 mg/dL (0.72-1.25); POTASSIUM 3.8 mmol/L (3.5-5.1)
[2017-04-02] MEDS: HYDRALAZINE HCL 20 MG/ML VIAL IV PRN ×2 (07:30→15:30)
[2017-04-02 08:00] VITALS: BP 217/120
[2017-04-02] MEDS: INSULIN REGULAR, HUMAN 100 UNIT/1 ML 3ML VIAL SQ SCH ×4 (08:18→20:00)
[2017-04-02] MEDS: BRIMONIDINE/TIMOLOL (OPTH SOLN 5 ML DRPETTE OP SCH ×2 (09:20→17:52)
[2017-04-02] MEDS: FAMOTIDINE 20 MG/2 ML VIAL IV SCH ×2 (09:20→17:52)
[2017-04-02 12:00] VITALS: BP 152/77
[2017-04-02] MEDS ORDERED: FUROSEMIDE INJ 10 MG/ML 2 ML VIAL IV ONE (12:30)
--- NOTE | 2017-04-02 14:09 | Progress Note ---
DATE: April 02, 2017 PSYCHIATRIC PROGRESS NOTE Patient is found in his room with the medical team and his and his sister. He is drowsy. Patient received a p.r.n. IM injection again last night at 2257. This has been 3 consecutive nights that he has needed injections. This is my first time able to talk to family members, and they expressed a concern that he is too sedated. They request psych meds to be taken off. I discussed with patient's nurse, who informed me that, as per report, patient has been agitated, trying to climb out of bed. Nurse reports to me that they are not aware of family members being unhappy with psych service until today. I also discussed with treatment team, who informed me that patient improved during this hospitalization. Family members have not, up to today, expressed their unhappiness with the care. Discussed with the treatment team and recommend that at this time we will discontinue all psych medications, and we will see the patient upon request. Family members aware that Psych will discontinue the medication and agree with the plan. ASSESSMENT: Psychosis/delirium. PLAN 1. Discontinue Risperdal p.r.n. p.o. 2. Discontinue Haldol p.r.n. IM. 3. Discussed with nursing staff and medical team. 4. Also of note, patient has not been receiving any Risperdal p.r.n. p.o. Thank you for this consultation. Dictated by: TREV Groves Job#: [id number] EV
[2017-04-02 16:00] VITALS: BP 216/108
[2017-04-02] MEDS ORDERED: MIDAZOLAM HCL 2 MG/2 ML VIAL ONE (17:15)
[2017-04-02] MEDS ORDERED: FENTANYL CITRATE/PF 100MCG/2 ML INJ ONE (17:15)
[2017-04-02] MEDS: ENOXAPARIN SOD INJ 40 MG/0.4 ML SYR SC SCH (17:52)
[2017-04-02 20:00] VITALS: BP 161/94
[2017-04-02] MEDS: BIMATOPROST(OPTH) 2.5 ML BOTTLE OP SCH (20:55)
[2017-04-03] VITALS (7 sets, daily range): BP systolic 150–194; BP diastolic 87–96
[2017-04-03] MEDS: HYDRALAZINE HCL 20 MG/ML VIAL IV PRN ×2 (05:09→12:45)
[2017-04-03 06:27] LABS: ANION GAP 18.1 mmol/L (8-16); CALCIUM 8.4 mg/dL (8.4-10.2); CREATININE, SERUM 3.42 mg/dL (0.72-1.25); POTASSIUM 4.1 mmol/L (3.5-5.1)
[2017-04-03] MEDS: INSULIN REGULAR, HUMAN 100 UNIT/1 ML 3ML VIAL SQ SCH ×3 (07:30→15:53)
[2017-04-03] MEDS: FAMOTIDINE 20 MG/2 ML VIAL IV SCH ×2 (08:47→17:00)
[2017-04-03] MEDS: BRIMONIDINE/TIMOLOL (OPTH SOLN 5 ML DRPETTE OP SCH ×2 (08:47→17:00)
[2017-04-03] MEDS: METHYLPREDNISOLONE SOD SUCC 500 MG in SODIUM CHLORIDE 0.9% 100 ML IV SCH (12:44)
--- NOTE | 2017-04-03 13:43 | Consultation ---
DATE OF CONSULTATION: April 03, 2017 CHIEF COMPLAINT: Mental confusion. HISTORY OF PRESENT ILLNESS: The patient is a 56-year-old male admitted with change in mental status with blood work showing renal insufficiency worsening. The patient has a 5-year history of multiple sclerosis. The stated he has not been able to eat in the last several days, and therefore, consultation requested for gastrostomy tube insertion for nutritional support. There is no history of nausea, vomiting, fever, or chills. PAST MEDICAL HISTORY: Significant for hypertension, diabetes, multiple sclerosis. SURGICAL HISTORY: Unremarkable. ALLERGIES: HE HAS NO DRUG ALLERGY. SOCIAL HABITS: No history of smoking or alcohol abuse. PHYSICAL EXAMINATION VITALS: Stable. He is afebrile. GENERAL: The patient is resting comfortably in bed in no apparent distress. HEENT: Sclera nonicteric. NECK: Supple. LUNGS: Clear. HEART: Regular rhythm. No murmurs. ABDOMEN: Soft and nontender. EXTREMITIES: Without cyanosis or edema. Creatinine is 3.4 and glucose 212. White cell count is 8 with hemoglobin of 9 and platelet count of 193,000. MRI of the brain is without acute changes. Chest x-ray unremarkable. ASSESSMENT: Patient with a history of multiple sclerosis and chronic renal insufficiency, currently not eating. PLAN: Insertion of gastrostomy tube under anesthesia. Attendant risks discussed with the . Job#: [id number] JAMARI
[2017-04-03] MEDS ORDERED: BUPIVACAINE 0.25%/EPI 30ML SDV INJ ONE (16:10)
[2017-04-03] MEDS: ENOXAPARIN SOD INJ 40 MG/0.4 ML SYR SC SCH (17:00)
[2017-04-03] MEDS: DEXTROSE 5%/0.45% SOD CHL 1,000 ML IV SCH (17:53)
[2017-04-03] MEDS: BIMATOPROST(OPTH) 2.5 ML BOTTLE OP SCH (21:00)
[2017-04-03] MEDS ORDERED: METHYLPREDNISOLONE SOD SUCC 1,000 MG/8 ML VIAL IV SCH (21:00)
[2017-04-04] VITALS (7 sets, daily range): BP systolic 135–210; BP diastolic 74–105
--- NOTE | 2017-04-04 02:38 | Operative Report ---
DATE OF PROCEDURE: April 03, 2017 PREOPERATIVE DIAGNOSIS: Dysphagia. POSTOPERATIVE DIAGNOSIS: Dysphagia. OPERATIVE PROCEDURE: Insertion of gastrostomy tube. GROUP DYNAMICS INSTRUCTOR: None. ANESTHESIA: General endotracheal, Dr. Sherwood. INDICATIONS: The patient is a 56-year-old male with history of multiple sclerosis, who has been aphasic for several weeks and not eating. The patient's family has consented for placement of gastrostomy tube under anesthesia with all attendant risks discussed including bleeding, infection and organ injury. DESCRIPTION OF PROCEDURE: The patient was brought to the OR, intubated. The abdomen was prepped with alcohol and draped in sterile fashion. A supraumbilical incision was made, a 5 mm port inserted, insufflation begun. Under direct vision, the stomach was noted to be lying high in the upper abdomen; and, therefore, the PEG tube had been tried previously and was not feasible. At this point, we made an upper midline incision from xiphoid down to midway to the umbilicus, going through the linea alba. The stomach was then localized, and it was brought down to the operative field under mild tension. We then made a left upper quadrant small incision for passage of the 20-Occitan gastrostomy tube through the left upper quadrant abdominal wall, and a pursestring stitch of 2-0 Vicryl was then placed in the anterior aspect of the body of the stomach near the antrum. The gastrostomy incision was made into the stomach, and the tube was inserted and the balloon inflated. The pursestring stitch was tied. We placed an additional 2-0 silk seromuscular pursestring stitch outside the initial one and tied it snug around the gastrostomy tube. The tube was then pulled against the abdominal wall snugly but not with undue tension. Additional seromuscular stitch in the stomach was placed using 2-0 silk to anchor it to the abdominal wall. We then irrigated the operative field and closed the midline fascia with running number 1 PDS, skin with jackeline. The patient was extubated and transported to the recovery room. Job#: [id number] EV
[2017-04-04 06:52] LABS: BASOPHILS % 0.2 % (0.0-1.0); HEMATOCRIT 29.7 % (38.2-49.6); LYMPHOCYTES # (AUTO) 1.3 (1.0-3.2); LYMPHOCYTES % 5.5 % (18.0-39.1); MEAN CORPUSCULAR HEMOGLOBIN 29.9 pg (28-32); MEAN CORPUSCULAR HGB CONC 33.7 g/dL (31-35); MEAN CORPUSCULAR VOLUME 88.9 fL (81-99); MONOCYTES # (AUTO) 0.5 (0.2-0.8); NEUTROPHILS # (AUTO) 21.8 (2.1-6.9); PLATELET COUNT 243 x10e3/uL (140-360); RED BLOOD COUNT 3.34 x10e6/uL (4.3-5.7); RED CELL DISTRIBUTION WIDTH 13.3 % (11.7-14.4)
[2017-04-04 07:32] LABS: ANION GAP 17.2 mmol/L (8-16); CALCIUM 7.4 mg/dL (8.4-10.2); CREATININE, SERUM 3.57 mg/dL (0.72-1.25); POTASSIUM 4.2 mmol/L (3.5-5.1)
[2017-04-04] MEDS: BRIMONIDINE/TIMOLOL (OPTH SOLN 5 ML DRPETTE OP SCH ×2 (08:00→17:21)
[2017-04-04] MEDS: HYDRALAZINE HCL 20 MG/ML VIAL IV PRN ×2 (08:55→15:13)
[2017-04-04] MEDS: INSULIN REGULAR, HUMAN 100 UNIT/1 ML 3ML VIAL SQ SCH ×4 (08:55→21:00)
[2017-04-04] MEDS: FAMOTIDINE 20 MG/2 ML VIAL IV SCH ×2 (08:55→16:26)
[2017-04-04 11:36] LABS: LYMPHOCYTES % (MANUAL) 8 % (19-48); MONOCYTES % (MANUAL) 2 % (3.4-9.0); NEUTROPHILS % (MANUAL) 90 % (40-74)
[2017-04-04 11:37] LABS: PLATELET ESTIMATE ADEQUATE; PLATELET MORPHOLOGY COMMENT NORMAL; RBC MORPHOLOGY COMMENT NORMAL
[2017-04-04] MEDS ORDERED: BUPIVACAINE 0.25%/EPI 30ML SDV INJ ONE (12:29)
[2017-04-04] MEDS: DEXTROSE 5%/0.45% SOD CHL 1,000 ML IV SCH (13:53)
[2017-04-04] MEDS ORDERED: FENTANYL CITRATE/PF 100MCG/2 ML INJ ONE (14:22)
[2017-04-04] MEDS: METHYLPREDNISOLONE SOD SUCC 500 MG in SODIUM CHLORIDE 0.9% 100 ML IV SCH ×2 (15:17→15:18)
[2017-04-04] MEDS: ENOXAPARIN SOD INJ 40 MG/0.4 ML SYR SC SCH (16:26)
[2017-04-04] MEDS ORDERED: LABETALOL HCL IV 5 MG/ML 20ML MDV IV ONE ×2 (17:00→18:30)
[2017-04-04] MEDS: BIMATOPROST(OPTH) 2.5 ML BOTTLE OP SCH (21:00)
[2017-04-04] MEDS ORDERED: CEFDINIR 300 MG PO SCH (21:00)
[2017-04-05] VITALS (7 sets, daily range): BP systolic 151–198; BP diastolic 78–112
[2017-04-05] MEDS ORDERED: METHYLPREDNISOLONE SOD SUCC 500 MG in SODIUM CHLORIDE 0.9% 100 ML IV SCH (03:00)
[2017-04-05] MEDS: DEXTROSE 5%/0.45% SOD CHL 1,000 ML IV SCH (03:04)
[2017-04-05 04:22] LABS: CREATININE,URINE RANDOM 112.82 mg/dL (63-166)
[2017-04-05] MEDS: HYDRALAZINE HCL 20 MG/ML VIAL IV PRN ×3 (05:19→16:47)
[2017-04-05] MEDS: BRIMONIDINE/TIMOLOL (OPTH SOLN 5 ML DRPETTE OP SCH ×2 (08:13→16:47)
[2017-04-05] MEDS: FAMOTIDINE 20 MG/2 ML VIAL IV SCH ×2 (08:13→16:47)
[2017-04-05] MEDS: INSULIN REGULAR, HUMAN 100 UNIT/1 ML 3ML VIAL SQ SCH ×4 (08:28→16:47)
[2017-04-05] MEDS ORDERED: ACETAMINOPHEN 325 MG SUPP PR PRN (08:30)
[2017-04-05] MEDS ORDERED: ARTIFICIAL TEARS (OPTH) 15 ML BTL OP PRN (08:30)
--- NOTE | 2017-04-05 10:05 | Diagnostic Imaging Report ---
EXAMINATION: Chest, CHEST 2 VIEWS INDICATION: Chest pain COMPARISON: Portable chest 03/25/2017 FINDINGS: LINES: None. Heart: Normal cardiac silhouette. Vascular: The pulmonary vasculature is within normal limits. Mediastinum: No mediastinal, hilar, or axillary mass or lymphadenopathy. Lungs: No parenchymal mass. No focal consolidation. Pleura: No pleural effusion. No pneumothorax. Bones: No acute osseous abnormality. Degenerative changes of the thoracic spine. Soft tissues: Pneumoperitoneum is present. Impression: Pneumoperitoneum. The findings were discussed with the nurse taking care of the patient at 1000 hours on 04/05/2017. Signed by: Dr. Jez Gomes M.D. on 04/05/2017 10:02 AM
[2017-04-05] MEDS ORDERED: DIATRIZOATE MEGL/DIATRIZOA SOD 30 ML BTL PO ONE (12:02)
[2017-04-05 12:15] LABS: BASOPHILS % 0.1 % (0.0-1.0); HEMATOCRIT 28.5 % (38.2-49.6); HEMOGLOBIN 9.4 g/dL (14.0-18.0); LYMPHOCYTES # (AUTO) 1.7 (1.0-3.2); LYMPHOCYTES % 6.8 % (18.0-39.1); MEAN CORPUSCULAR HEMOGLOBIN 29.2 pg (28-32); MEAN CORPUSCULAR VOLUME 88.5 fL (81-99); MONOCYTES % 3.9 % (4.4-11.3); NEUTROPHILS # (AUTO) 21.5 (2.1-6.9); NEUTROPHILS % 87.6 % (38.7-80.0); PLATELET COUNT 237 x10e3/uL (140-360); RED BLOOD COUNT 3.22 x10e6/uL (4.3-5.7); RED CELL DISTRIBUTION WIDTH 13.6 % (11.7-14.4)
[2017-04-05 12:41] LABS: ANION GAP 14.9 mmol/L (8-16); CALCIUM 7.5 mg/dL (8.4-10.2); CREATININE, SERUM 3.74 mg/dL (0.72-1.25); POTASSIUM 3.9 mmol/L (3.5-5.1)
--- NOTE | 2017-04-05 15:20 | Diagnostic Imaging Report ---
EXAM: CT Abdomen and Pelvis WITHOUT contrast INDICATION: Abdominal pain COMPARISON: None. TECHNIQUE: Abdomen and pelvis were scanned utilizing a multidetector helical scanner from the lung base to the pubic symphysis. Coronal and sagittal reformations were obtained. The lack of intravenous contrast limits the evaluation of the solid organs, vasculature, and possible lymphadenopathy. Protocol: General survey without contrast IV CONTRAST: No intravenous contrast was administered as per physician request. ORAL CONTRAST: None. COMPLICATIONS: None. RADIATION DOSE: Total Exam DLP: 537.5 mGy*cm. CTDIvol has been reviewed. It is below the limits set by the Radiation Protocol Committee (RPC). FINDINGS: LINES: Gastrostomy catheter is present with the tip positioned within the gastric lumen, series 2 image 26. Contrast opacification of the gastric body and proximal duodenum is noted. No extravasation. Lower thorax: No parenchymal abnormality. No pneumothorax. No pleural effusion. Left lung base atelectasis. Liver: No focal mass. No hepatomegaly. Normal parenchyma. Gallbladder: No gallstones. No gallbladder distention. Biliary tree: No intrahepatic duct dilation. No extrahepatic duct dilation. Spleen: No splenomegaly. No focal mass. Pancreas: No focal mass. Normal pancreatic duct. No peripancreatic inflammatory changes. Kidneys: No obstructing calculi. No hydronephrosis. No cysts. No perinephric soft tissue inflammatory changes. Adrenal glands: No adrenal nodules.. Bladder: Hall catheter is present in the decompressed urinary bladder. Pelvic organs: Normal. GI: No bowel wall thickening. No air-fluid levels. The stomach and small bowel are normal. The colon is normal. Normal appendix. A moderate amount of retained feces limits intraluminal evaluation of the colon. Peritoneum/retroperitoneum: Moderate amount of pneumoperitoneum is present in the upper abdomen, series 2 image 20. No ascites. No drainable fluid collection. Lymph nodes: No lymphadenopathy. . Vessels: No focal abnormality. Atherosclerotic calcifications. Limited evaluation. Bones: No focal abnormality. Degenerative changes of the. Soft tissues: Median laparotomy skin incision with skin jackeline. IMPRESSION: Pneumoperitoneum, likely secondary to recent gastrostomy placement. Signed by: Dr. Jez Gomes M.D. on 04/05/2017 3:17 PM
--- NOTE | 2017-04-05 15:34 | Diagnostic Imaging Report ---
History:AMS, r/o CVA Comparison studies:St head 03/25/2017 Technique: Axial images were obtained from the skull base to the vertex. Coronal and sagittal images reconstructed from the axial data. Intravenous contrast: None Findings: Scalp/skull: No abnormalities. Extra-axial spaces: No masses. No fluid collections. Brain sulci: Mildly prominent. Ventricles: Mild compensatory dilatation. No hydrocephalus. Parenchyma: Scattered and confluent hypodensities in the supratentorial white matter are small vessel ischemic changes. Stable hypodensities of the left lauren and middle cerebellar peduncle. Bilateral thalamocapsular and right striatocapsular chronic lacunar infarcts. No masses, hemorrhage, acute or chronic cortical vascular insults. Sellar/suprasellar region: No abnormalities. Craniocervical junction: Patent foramen magnum. No Chiari one malformation. Incidental findings: Atherosclerotic calcifications in the carotid siphons and vertebral arteries . Impression: No acute abnormalities. Stable exam. Chronic findings: 1. Mild generalized volume loss. 2. Moderate supratentorial white matter small vessel ischemic changes. Signed by: DR Jimbo Chappell M.D. on 04/05/2017 3:30 PM
[2017-04-05] MEDS: BIMATOPROST(OPTH) 2.5 ML BOTTLE OP SCH (23:00)
[2017-04-06] VITALS: BP 199/95
[2017-04-06] MEDS: HYDRALAZINE HCL 20 MG/ML VIAL IV PRN ×5 (02:00→21:40)
[2017-04-06] MEDS: DEXTROSE 5%/0.45% SOD CHL 1,000 ML IV SCH ×2 (02:00→21:40)
[2017-04-06 04:00] VITALS: BP 192/99
[2017-04-06 06:39] LABS: ANION GAP 14.7 mmol/L (8-16); CREATININE, SERUM 3.65 mg/dL (0.72-1.25); POTASSIUM 3.7 mmol/L (3.5-5.1)
[2017-04-06] MEDS: INSULIN REGULAR, HUMAN 100 UNIT/1 ML 3ML VIAL SQ SCH ×4 (06:39→12:39)
[2017-04-06 08:00] VITALS: BP 200/84
[2017-04-06 08:06] LABS: PHOSPHORUS 4.2 MG/DL (2.3-4.7)
[2017-04-06] MEDS: BRIMONIDINE/TIMOLOL (OPTH SOLN 5 ML DRPETTE OP SCH ×2 (09:47→17:00)
[2017-04-06] MEDS: FAMOTIDINE 20 MG/2 ML VIAL IV SCH ×2 (09:47→17:00)
[2017-04-06 12:00] VITALS: BP 222/84
[2017-04-06 12:05] LABS: ABG PCO2 28 mmHg (41-51); ABG PH 7.47 (7.31-7.41); ABG PO2 108 mmHg (80-105)
[2017-04-06 12:06] LABS: ABG HCO3 21 mmol/L (23-28)
[2017-04-06 16:00] VITALS: BP 232/138
[2017-04-06] MEDS ORDERED: CEFOXITIN SOD 1 GM VIAL ONE (17:18)
[2017-04-06] MEDS ORDERED: DESFLURANE 240 ML BTL INH ONE (17:18)
[2017-04-06] MEDS ORDERED: PROPOFOL IV EMULSION 10 MG/ML 20 ML VIAL ONE (17:18)
[2017-04-06] MEDS ORDERED: LIDOCAINE HCL 2% LOCAL INJ 5 ML SDV VIAL INJ ONE (17:18)
[2017-04-06] MEDS ORDERED: SEVOFLURANE INHAL SOLN 250 ML PEN BTL ONE (17:18)
[2017-04-06] MEDS ORDERED: ROCURONIUM BROMIDE 10 MG/ML 5ML VIAL ONE (17:18)
[2017-04-06] MEDS: LABETALOL HCL IV 5 MG/ML 20ML MDV IV PRN (18:05)
[2017-04-06] MEDS ORDERED: CLONIDINE HCL 0.3 MG TAB GT NR (18:45)
[2017-04-06] MEDS: HYDRALAZINE HCL 25 MG TAB GT SCH (18:45)
[2017-04-06] MEDS: BUMETANIDE INJ 0.25MG/ML 4ML VIAL IV SCH (18:46)
[2017-04-06 18:53] LABS: CREATINE KINASE MB 0.7 ng/mL (0.00-5.00); TROPONIN I 0.028 ng/mL (0-0.300)
[2017-04-06 20:00] VITALS: BP 199/106
[2017-04-06] MEDS: BIMATOPROST(OPTH) 2.5 ML BOTTLE OP SCH (21:40)
[2017-04-06] MEDS: CITRIC ACID/SODIUM CITRATE 30 ML UDC GT SCH (21:40)
[2017-04-06 22:06] LABS: CREATINE KINASE MB 0.7 ng/mL (0.00-5.00); TROPONIN I 0.026 ng/mL (0-0.300)
[2017-04-07] VITALS (7 sets, daily range): BP systolic 137–249; BP diastolic 71–122
[2017-04-07] MEDS: HYDRALAZINE HCL 25 MG TAB GT SCH ×4 (00:07→17:15)
[2017-04-07] MEDS: LABETALOL HCL IV 5 MG/ML 20ML MDV IV PRN ×2 (00:08→20:54)
[2017-04-07 01:57] LABS: CREATINE KINASE MB 0.7 ng/mL (0.00-5.00); TROPONIN I 0.026 ng/mL (0-0.300)
[2017-04-07] MEDS: BUMETANIDE INJ 0.25MG/ML 4ML VIAL IV SCH ×3 (02:09→17:15)
[2017-04-07] MEDS: INSULIN REGULAR, HUMAN 100 UNIT/1 ML 3ML VIAL SQ SCH ×2 (02:09→06:47)
[2017-04-07] MEDS: HYDRALAZINE HCL 20 MG/ML VIAL IV PRN (04:40)
--- NOTE | 2017-04-07 06:48 | Diagnostic Imaging Report ---
EXAM: CHEST SINGLE (PORTABLE), AP 1 view DATE: 04/07/2017 6:00 AM Time stamp on exam: 0621 hours INDICATION: Shortness of breath, pneumoperitoneum COMPARISON: AP view of the chest April 05, 2017 FINDINGS: LINES/TUBES: None LUNGS: Stable left lower lobe atelectasis/scarring. PLEURA: No effusions or pneumothorax. Stable elevation of the left hemidiaphragm. HEART AND MEDIASTINUM: Normal size and contour. BONES AND SOFT TISSUES: Pneumoperitoneum no longer visualized. IMPRESSION: Pneumoperitoneum no longer visualized. Signed by: Dr. Vita Morel M.D. on 04/07/2017 6:45 AM
[2017-04-07 07:55] LABS: BASOPHILS % 0.1 % (0.0-1.0); HEMATOCRIT 29.9 % (38.2-49.6); HEMOGLOBIN 9.9 g/dL (14.0-18.0); LYMPHOCYTES # (AUTO) 1.1 (1.0-3.2); LYMPHOCYTES % 7.3 % (18.0-39.1); MEAN CORPUSCULAR HEMOGLOBIN 29.8 pg (28-32); MEAN CORPUSCULAR HGB CONC 33.1 g/dL (31-35); MEAN CORPUSCULAR VOLUME 90.1 fL (81-99); MONOCYTES # (AUTO) 0.9 (0.2-0.8); MONOCYTES % 6.3 % (4.4-11.3); NEUTROPHILS # (AUTO) 12.5 (2.1-6.9); NEUTROPHILS % 85.3 % (38.7-80.0); PLATELET COUNT 216 x10e3/uL (140-360); RED BLOOD COUNT 3.32 x10e6/uL (4.3-5.7); RED CELL DISTRIBUTION WIDTH 13.8 % (11.7-14.4)
[2017-04-07 08:13] LABS: ALBUMIN 2.4 g/dL (3.5-5.0); ALBUMIN/GLOBULIN RATIO 0.8 (0.8-2.0); ANION GAP 15.6 mmol/L (8-16); CREATININE, SERUM 3.6 mg/dL (0.72-1.25); POTASSIUM 3.6 mmol/L (3.5-5.1)
[2017-04-07] MEDS: FAMOTIDINE 20 MG/2 ML VIAL IV SCH ×2 (08:17→16:40)
[2017-04-07] MEDS: CITRIC ACID/SODIUM CITRATE 30 ML UDC GT SCH ×3 (08:17→20:53)
[2017-04-07] MEDS ORDERED: GLIPIZIDE 5 MG TAB PO SCH (08:30)
[2017-04-07] MEDS: AMLODIPINE BESYLATE 10 MG TAB PO SCH (09:35)
[2017-04-07] MEDS: BRIMONIDINE/TIMOLOL (OPTH SOLN 5 ML DRPETTE OP SCH ×2 (09:35→16:54)
[2017-04-07] MEDS ORDERED: LACTULOSE SYRUP 20 GM/30 ML UDC PO ONE (10:30)
[2017-04-07] MEDS: CLONIDINE HCL 0.3MG/24 HR PATCH TOP SCH (11:02)
[2017-04-07] MEDS ORDERED: INSULIN REGULAR, HUMAN 100 UNIT/1 ML 3ML VIAL SQ SCH (12:00)
[2017-04-07 14:04] LABS: OCCULT BLOOD STOOL POSITIVE (NEGATIVE)
[2017-04-07 14:45] LABS: C DIFFICILE TOXIN A&B AMP PROB NEGATIVE (NEGATIVE)
--- NOTE | 2017-04-07 15:19 | Consultation ---
DATE OF CONSULTATION: April 07, 2017 ENDOCRINE CONSULTATION Patient of Dr. Betty Neal. Thank you very much for referring this patient. This is an unfortunate 56-year-old gentleman who is referred to me for evaluation of acute hyperglycemia and diabetes mellitus. Patient has a history of multiple sclerosis resulting in paraplegia and extreme weakness. He came to the hospital with a flare up of the MS. During the hospital stay, the patient was started on steroids as well. At home, he is also on tube feedings. Has chronic renal failure. His other medical problems include history of hypertension, sepsis, and he is legally blind. PHYSICAL EXAMINATION GENERAL: Most of the history is available from the family. Patient has altered mental status. VITALS: His heart rate is around 78, blood pressure 167/80, respirations 18. HEENT: Essentially unremarkable. Thyroid is palpable. Clinically, he is nearly euthyroid. CHEST: Bilateral vesicular breathing. No rubs heard. CARDIAC: Both 1st and 2nd heart sounds. There is no 3rd or 4th heart sound. There is a murmur of 2/6. His blood sugars have been in the range of 418 to 372. Patient was on IV steroids before this. CLINICAL IMPRESSION 1. Diabetes mellitus type 2 flared with the intravenous steroids. 2. Multiple sclerosis with acute flare up. 3. Chronic renal failure. 4. Hypertension. 5. Legally blind. 6. Major depression. PLAN: At this time, is to do a hemoglobin A1c, thyroid function test, put him on Levemir insulin, increase his glipizide. Thanks for referring this patient. I will follow this patient with you. Job#: [id number] JAMARI
[2017-04-07 15:43] LABS: THYROID STIMULATING HORMONE 0.296 uIU/mL (0.350-4.940)
[2017-04-07] MEDS ORDERED: INSULIN LISPRO 100 UNIT/1 ML 3ML VIAL SQ SCH (16:30)
[2017-04-07] MEDS: INSULIN LISPRO 100 UNIT/1 ML 3ML VIAL SQ SCH (18:13)
[2017-04-07] MEDS: BIMATOPROST(OPTH) 2.5 ML BOTTLE OP SCH (20:53)
[2017-04-07] MEDS: INSULIN DETEMIR 100 UNIT/ML PEN SQ SCH (20:54)
[2017-04-08] MEDS: INSULIN LISPRO 100 UNIT/1 ML 3ML VIAL SQ SCH ×5 (00:45→23:42)
[2017-04-08] MEDS: HYDRALAZINE HCL 25 MG TAB GT SCH ×4 (00:46→20:49)
[2017-04-08 00:49] VITALS: BP 173/86
[2017-04-08] MEDS: BUMETANIDE INJ 0.25MG/ML 4ML VIAL IV SCH ×3 (02:45→17:20)
[2017-04-08 05:59] VITALS: BP 142/92
[2017-04-08 06:28] LABS: BASOPHILS % 0.1 % (0.0-1.0); EOSINOPHILS # (AUTO) 0.1 (0.0-0.4); EOSINOPHILS % 0.5 % (0.0-6.0); HEMATOCRIT 28.5 % (38.2-49.6); HEMOGLOBIN 9.5 g/dL (14.0-18.0); LYMPHOCYTES % 14.8 % (18.0-39.1); MEAN CORPUSCULAR HEMOGLOBIN 29.8 pg (28-32); MEAN CORPUSCULAR HGB CONC 33.3 g/dL (31-35); MEAN CORPUSCULAR VOLUME 89.3 fL (81-99); MONOCYTES # (AUTO) 1.1 (0.2-0.8); MONOCYTES % 8.1 % (4.4-11.3); NEUTROPHILS # (AUTO) 10.2 (2.1-6.9); NEUTROPHILS % 75.6 % (38.7-80.0); PLATELET COUNT 193 x10e3/uL (140-360); RED BLOOD COUNT 3.19 x10e6/uL (4.3-5.7); RED CELL DISTRIBUTION WIDTH 13.7 % (11.7-14.4)
[2017-04-08 06:52] LABS: ALBUMIN 2.1 g/dL (3.5-5.0); ALBUMIN/GLOBULIN RATIO 0.8 (0.8-2.0); ANION GAP 14.3 mmol/L (8-16); CREATININE, SERUM 3.42 mg/dL (0.72-1.25); MAGNESIUM 1.9 MG/DL (1.3-2.1); POTASSIUM 3.3 mmol/L (3.5-5.1)
[2017-04-08 07:11] LABS: CALCIUM 6.7 mg/dL (8.4-10.2)
[2017-04-08 07:58] LABS: ANISOCYTOSIS SLIGHT; HYPOCHROMASIA SLIGHT; LYMPHOCYTES % (MANUAL) 10 % (19-48); MONOCYTES % (MANUAL) 9 % (3.4-9.0); NEUTROPHILS % (MANUAL) 79 % (40-74)
[2017-04-08 07:59] LABS: PLATELET ESTIMATE ADEQUATE; PLATELET MORPHOLOGY COMMENT NORMAL; RBC MORPHOLOGY COMMENT NORMAL
[2017-04-08 08:49] VITALS: BP 140/80
[2017-04-08] MEDS: FAMOTIDINE 20 MG/2 ML VIAL IV SCH ×2 (09:12→17:46)
[2017-04-08] MEDS: CITRIC ACID/SODIUM CITRATE 30 ML UDC GT SCH ×2 (09:12→16:00)
[2017-04-08] MEDS: AMLODIPINE BESYLATE 10 MG TAB PO SCH (09:12)
[2017-04-08] MEDS: GLIPIZIDE 5 MG TAB PO SCH (09:12)
[2017-04-08] MEDS ORDERED: CALCIUM GLUCONATE 10% INJ 9.3 MEQ in SODIUM CHLORIDE 0.9% 100 ML 100 ML IV ONE (10:00)
[2017-04-08] MEDS ORDERED: POTASSIUM CHLORIDE 20 MEQ TAB CR PO ONE (10:20)
[2017-04-08] MEDS: BRIMONIDINE/TIMOLOL (OPTH SOLN 5 ML DRPETTE OP SCH ×2 (11:46→17:46)
[2017-04-08 12:16] VITALS: BP 187/88
[2017-04-08] MEDS: FLUCONAZOLE 100 MG TAB PO SCH (14:15)
[2017-04-08] MEDS: CALCIUM CARBONATE 500 MG CHEWABLE TABS PO SCH ×2 (16:00→20:49)
[2017-04-08 17:21] VITALS: BP 160/79
[2017-04-08 20:00] VITALS: BP 146/83
[2017-04-08] MEDS: BIMATOPROST(OPTH) 2.5 ML BOTTLE OP SCH (20:49)
[2017-04-08] MEDS: INSULIN DETEMIR 100 UNIT/ML PEN SQ SCH (20:51)
[2017-04-09] VITALS: BP 147/65
[2017-04-09 04:10] VITALS: BP 129/62
[2017-04-09] MEDS: HYDRALAZINE HCL 25 MG TAB GT SCH ×3 (05:25→20:23)
[2017-04-09] MEDS: INSULIN LISPRO 100 UNIT/1 ML 3ML VIAL SQ SCH ×3 (06:01→18:45)
[2017-04-09 07:25] LABS: BASOPHILS % 0.3 % (0.0-1.0); EOSINOPHILS # (AUTO) 0.4 (0.0-0.4); HEMATOCRIT 31.1 % (38.2-49.6); HEMOGLOBIN 10.2 g/dL (14.0-18.0); LYMPHOCYTES % 14.5 % (18.0-39.1); MEAN CORPUSCULAR HEMOGLOBIN 29.7 pg (28-32); MEAN CORPUSCULAR HGB CONC 32.8 g/dL (31-35); MEAN CORPUSCULAR VOLUME 90.7 fL (81-99); MONOCYTES % 7.7 % (4.4-11.3); NEUTROPHILS # (AUTO) 9.9 (2.1-6.9); NEUTROPHILS % 73.3 % (38.7-80.0); PLATELET COUNT 225 x10e3/uL (140-360); RED BLOOD COUNT 3.43 x10e6/uL (4.3-5.7); RED CELL DISTRIBUTION WIDTH 13.7 % (11.7-14.4)
[2017-04-09 07:42] VITALS: BP 153/79
[2017-04-09 07:59] LABS: ALBUMIN 2.1 g/dL (3.5-5.0); ALBUMIN/GLOBULIN RATIO 0.8 (0.8-2.0); ANION GAP 15.9 mmol/L (8-16); CREATININE, SERUM 3.54 mg/dL (0.72-1.25); MAGNESIUM 2.1 MG/DL (1.3-2.1); POTASSIUM 3.9 mmol/L (3.5-5.1)
[2017-04-09 08:51] LABS: CALCIUM 6.7 mg/dL (8.4-10.2)
[2017-04-09] MEDS: FLUCONAZOLE 100 MG TAB PO SCH (09:00)
[2017-04-09] MEDS ORDERED: FLUCONAZOLE 100 MG TAB PO SCH ×2 (09:00)
[2017-04-09] MEDS: BRIMONIDINE/TIMOLOL (OPTH SOLN 5 ML DRPETTE OP SCH ×2 (09:13→17:29)
[2017-04-09] MEDS: CHOLECALCIFEROL 1,000 UNIT TAB PO SCH (09:13)
[2017-04-09] MEDS: GLIPIZIDE 5 MG TAB PO SCH (09:13)
[2017-04-09] MEDS: CALCIUM CARBONATE 500 MG CHEWABLE TABS PO SCH ×3 (09:13→20:22)
[2017-04-09] MEDS: FAMOTIDINE 20 MG/2 ML VIAL IV SCH ×2 (09:13→17:29)
[2017-04-09] MEDS: BUMETANIDE INJ 0.25MG/ML 4ML VIAL IV SCH (09:14)
[2017-04-09] MEDS: CITRIC ACID/SODIUM CITRATE 30 ML UDC GT SCH (09:14)
[2017-04-09] MEDS ORDERED: CALCIUM GLUCONATE 10% INJ 9.3 MEQ in SODIUM CHLORIDE 0.9% 100 ML 100 ML IV ONE (10:00)
[2017-04-09] MEDS ORDERED: FLUCONAZOLE 100 MG TAB PO ONE (10:00)
[2017-04-09] MEDS: BISACODYL 5 MG TAB EC PO SCH (10:04)
[2017-04-09] MEDS ORDERED: METOCLOPRAMIDE HCL 10 MG/2ML VIAL IV SCH (11:30)
[2017-04-09 11:42] VITALS: BP 159/78
[2017-04-09] MEDS: METOCLOPRAMIDE HCL 10 MG/2ML VIAL IV SCH ×3 (11:58→23:24)
[2017-04-09 15:53] VITALS: BP 163/79
[2017-04-09 20:00] VITALS: BP 181/76
[2017-04-09] MEDS: BIMATOPROST(OPTH) 2.5 ML BOTTLE OP SCH (20:22)
[2017-04-09] MEDS: INSULIN DETEMIR 100 UNIT/ML PEN SQ SCH (20:23)
[2017-04-10 00:10] VITALS: BP 173/60
[2017-04-10] MEDS: INSULIN LISPRO 100 UNIT/1 ML 3ML VIAL SQ SCH ×4 (00:31→18:00)
[2017-04-10 04:14] VITALS: BP 149/72
[2017-04-10] MEDS: METOCLOPRAMIDE HCL 10 MG/2ML VIAL IV SCH ×3 (05:42→18:09)
[2017-04-10] MEDS: HYDRALAZINE HCL 25 MG TAB GT SCH ×3 (05:42→21:01)
[2017-04-10 06:07] LABS: BASOPHILS % 0.1 % (0.0-1.0); EOSINOPHILS # (AUTO) 0.3 (0.0-0.4); HEMATOCRIT 32.1 % (38.2-49.6); HEMOGLOBIN 10.7 g/dL (14.0-18.0); LYMPHOCYTES # (AUTO) 1.9 (1.0-3.2); LYMPHOCYTES % 12.9 % (18.0-39.1); MEAN CORPUSCULAR HEMOGLOBIN 29.9 pg (28-32); MEAN CORPUSCULAR HGB CONC 33.3 g/dL (31-35); MEAN CORPUSCULAR VOLUME 89.7 fL (81-99); MONOCYTES # (AUTO) 1.4 (0.2-0.8); MONOCYTES % 9.7 % (4.4-11.3); NEUTROPHILS # (AUTO) 10.8 (2.1-6.9); NEUTROPHILS % 73.7 % (38.7-80.0); PLATELET COUNT 244 x10e3/uL (140-360); RED BLOOD COUNT 3.58 x10e6/uL (4.3-5.7); RED CELL DISTRIBUTION WIDTH 13.6 % (11.7-14.4)
[2017-04-10 06:41] LABS: ANION GAP 14.7 mmol/L (8-16); CREATININE, SERUM 3.65 mg/dL (0.72-1.25); PHOSPHORUS 2.9 MG/DL (2.3-4.7); POTASSIUM 4.7 mmol/L (3.5-5.1)
[2017-04-10] MEDS: GLIPIZIDE 5 MG TAB PO SCH (07:30)
[2017-04-10 08:00] VITALS: BP 118/60
[2017-04-10] MEDS: FAMOTIDINE 20 MG/2 ML VIAL IV SCH ×2 (08:58→17:05)
[2017-04-10] MEDS: BUMETANIDE INJ 0.25MG/ML 4ML VIAL IV SCH (08:58)
[2017-04-10] MEDS: CITRIC ACID/SODIUM CITRATE 30 ML UDC GT SCH (08:58)
[2017-04-10] MEDS: BRIMONIDINE/TIMOLOL (OPTH SOLN 5 ML DRPETTE OP SCH ×2 (08:58→17:05)
[2017-04-10] MEDS: CHOLECALCIFEROL 1,000 UNIT TAB PO SCH (08:59)
[2017-04-10] MEDS: BISACODYL 5 MG TAB EC PO SCH (08:59)
[2017-04-10] MEDS: FLUCONAZOLE 100 MG TAB PO SCH (08:59)
[2017-04-10] MEDS: CALCIUM CARBONATE 500 MG CHEWABLE TABS PO SCH ×3 (08:59→21:00)
[2017-04-10 12:00] VITALS: BP 141/86
[2017-04-10 16:00] VITALS: BP 177/76
[2017-04-10] MEDS: CEFTRIAXONE SOD 1 GM in WATER STERILE 10ML VIAL 10 ML IV SCH (18:45)
[2017-04-10] MEDS ORDERED: CEFTRIAXONE SOD 1 GM VIAL ONE (18:46)
[2017-04-10 20:00] VITALS: BP 201/86
[2017-04-10] MEDS ORDERED: INSULIN DETEMIR 100 UNIT/ML PEN SQ SCH (21:00)
[2017-04-10] MEDS: BIMATOPROST(OPTH) 2.5 ML BOTTLE OP SCH (21:00)
[2017-04-10] MEDS: LABETALOL HCL IV 5 MG/ML 20ML MDV IV PRN (21:02)
[2017-04-10] MEDS ORDERED: BISACODYL 5 MG TAB EC PO PRN (23:30)
[2017-04-11] VITALS: BP 154/81
[2017-04-11] MEDS: METOCLOPRAMIDE HCL 10 MG/2ML VIAL IV SCH ×4 (01:50→17:43)
[2017-04-11 04:00] VITALS: BP 142/66
[2017-04-11] MEDS: CEFTRIAXONE SOD 1 GM in WATER STERILE 10ML VIAL 10 ML IV SCH ×2 (05:57→18:24)
[2017-04-11] MEDS: HYDRALAZINE HCL 25 MG TAB GT SCH ×3 (05:57→21:20)
[2017-04-11] MEDS: INSULIN LISPRO 100 UNIT/1 ML 3ML VIAL SQ SCH ×4 (06:20→18:23)
[2017-04-11 08:00] VITALS: BP 129/60
[2017-04-11] MEDS: BRIMONIDINE/TIMOLOL (OPTH SOLN 5 ML DRPETTE OP SCH ×2 (08:14→17:43)
[2017-04-11] MEDS: GLIPIZIDE 5 MG TAB PO SCH (08:14)
[2017-04-11] MEDS: BUMETANIDE INJ 0.25MG/ML 4ML VIAL IV SCH (08:14)
[2017-04-11] MEDS: FAMOTIDINE 20 MG/2 ML VIAL IV SCH ×2 (08:14→17:43)
[2017-04-11] MEDS: FLUCONAZOLE 100 MG TAB PO SCH (08:15)
[2017-04-11] MEDS: CALCIUM CARBONATE 500 MG CHEWABLE TABS PO SCH ×3 (08:15→21:20)
[2017-04-11] MEDS: CHOLECALCIFEROL 1,000 UNIT TAB PO SCH (08:15)
[2017-04-11 12:00] VITALS: BP 137/65
[2017-04-11 16:00] VITALS: BP 187/81
[2017-04-11 20:00] VITALS: BP 145/80
[2017-04-11] MEDS: BIMATOPROST(OPTH) 2.5 ML BOTTLE OP SCH (21:20)
[2017-04-11] MEDS: INSULIN DETEMIR 100 UNIT/ML PEN SQ SCH (21:20)
[2017-04-12] VITALS: BP 180/84
[2017-04-12] MEDS: HYDRALAZINE HCL 20 MG/ML VIAL IV PRN ×2 (00:45→20:10)
[2017-04-12] MEDS: METOCLOPRAMIDE HCL 10 MG/2ML VIAL IV SCH ×4 (00:45→18:03)
[2017-04-12] MEDS: INSULIN LISPRO 100 UNIT/1 ML 3ML VIAL SQ SCH ×4 (00:47→18:40)
[2017-04-12 04:00] VITALS: BP 187/79
[2017-04-12] MEDS: HYDRALAZINE HCL 25 MG TAB GT SCH ×2 (06:01→14:00)
[2017-04-12] MEDS ORDERED: CEFTRIAXONE SOD 1 GM VIAL ONE (06:03)
[2017-04-12] MEDS: CEFTRIAXONE SOD 1 GM in WATER STERILE 10ML VIAL 10 ML IV SCH ×2 (06:20→18:03)
--- NOTE | 2017-04-12 06:46 | Diagnostic Imaging Report ---
EXAM: CHEST SINGLE (PORTABLE), AP 1 view DATE: 04/12/2017 5:00 AM Time stamp on exam: 0016 hours INDICATION: Cough COMPARISON: AP view of the chest April 07, 2017 FINDINGS: LINES/TUBES: None LUNGS: Left lower lobe atelectasis. PLEURA: No effusions or pneumothorax. HEART AND MEDIASTINUM: Normal size and contour. BONES AND SOFT TISSUES: No acute findings. IMPRESSION: Left lower lobe atelectasis. Signed by: Dr. Vita Morel M.D. on 04/12/2017 6:43 AM
[2017-04-12 07:02] LABS: ANION GAP 14.5 mmol/L (8-16); CALCIUM 7.6 mg/dL (8.4-10.2); CREATININE, SERUM 3.91 mg/dL (0.72-1.25); POTASSIUM 5.5 mmol/L (3.5-5.1)
[2017-04-12] MEDS: GLIPIZIDE 5 MG TAB PO SCH (07:30)
[2017-04-12 08:00] VITALS: BP 184/108
[2017-04-12 09:25] LABS: BASOPHILS % 0.1 % (0.0-1.0); EOSINOPHILS # (AUTO) 0.5 (0.0-0.4); EOSINOPHILS % 3.7 % (0.0-6.0); HEMATOCRIT 29.5 % (38.2-49.6); HEMOGLOBIN 9.7 g/dL (14.0-18.0); LYMPHOCYTES # (AUTO) 1.8 (1.0-3.2); LYMPHOCYTES % 13.1 % (18.0-39.1); MEAN CORPUSCULAR HEMOGLOBIN 30.2 pg (28-32); MEAN CORPUSCULAR HGB CONC 32.9 g/dL (31-35); MEAN CORPUSCULAR VOLUME 91.9 fL (81-99); MONOCYTES # (AUTO) 1.1 (0.2-0.8); MONOCYTES % 7.8 % (4.4-11.3); NEUTROPHILS # (AUTO) 10.4 (2.1-6.9); NEUTROPHILS % 73.8 % (38.7-80.0); PLATELET COUNT 251 x10e3/uL (140-360); RED BLOOD COUNT 3.21 x10e6/uL (4.3-5.7); RED CELL DISTRIBUTION WIDTH 14.1 % (11.7-14.4)
[2017-04-12] MEDS: CALCIUM CARBONATE 500 MG CHEWABLE TABS PO SCH ×3 (10:31→20:19)
[2017-04-12] MEDS: BUMETANIDE INJ 0.25MG/ML 4ML VIAL IV SCH (10:31)
[2017-04-12] MEDS: FAMOTIDINE 20 MG/2 ML VIAL IV SCH ×2 (10:31→17:00)
[2017-04-12] MEDS: BRIMONIDINE/TIMOLOL (OPTH SOLN 5 ML DRPETTE OP SCH ×2 (10:31→17:00)
[2017-04-12] MEDS: FLUCONAZOLE 100 MG TAB PO SCH (10:31)
[2017-04-12] MEDS: CHOLECALCIFEROL 1,000 UNIT TAB PO SCH (10:31)
[2017-04-12] MEDS ORDERED: SOD POLYSTYRENE SULFONATE SUSP 15 GM/60 ML BTL PO ONE (12:00)
[2017-04-12] MEDS ORDERED: LACTULOSE SYRUP 20 GM/30 ML UDC PO ONE (12:00)
[2017-04-12 16:00] VITALS: BP 191/74
[2017-04-12 20:00] VITALS: BP 194/93
[2017-04-12] MEDS: INSULIN DETEMIR 100 UNIT/ML PEN SQ SCH (20:19)
[2017-04-12] MEDS: BIMATOPROST(OPTH) 2.5 ML BOTTLE OP SCH (21:08)
[2017-04-13] VITALS (7 sets, daily range): BP systolic 100–183; BP diastolic 56–113
[2017-04-13] MEDS ORDERED: HYDRALAZINE HCL 100 MG TABLET PO SCH
[2017-04-13] MEDS: METOCLOPRAMIDE HCL 10 MG/2ML VIAL IV SCH ×4 (00:17→17:00)
[2017-04-13] MEDS: INSULIN LISPRO 100 UNIT/1 ML 3ML VIAL SQ SCH ×4 (00:20→18:00)
[2017-04-13] MEDS: HYDRALAZINE HCL 25 MG TAB PO SCH ×4 (00:30→17:00)
[2017-04-13] MEDS: CEFTRIAXONE SOD 1 GM in WATER STERILE 10ML VIAL 10 ML IV SCH ×2 (05:45→20:35)
[2017-04-13] MEDS ORDERED: HYDRALAZINE HCL 25 MG TAB PO SCH (06:00)
[2017-04-13 06:17] LABS: BASOPHILS % 0.1 % (0.0-1.0); EOSINOPHILS # (AUTO) 0.3 (0.0-0.4); EOSINOPHILS % 2.6 % (0.0-6.0); HEMATOCRIT 28.7 % (38.2-49.6); HEMOGLOBIN 9.2 g/dL (14.0-18.0); LYMPHOCYTES # (AUTO) 1.6 (1.0-3.2); LYMPHOCYTES % 14.5 % (18.0-39.1); MEAN CORPUSCULAR HEMOGLOBIN 29.5 pg (28-32); MEAN CORPUSCULAR HGB CONC 32.1 g/dL (31-35); MONOCYTES % 8.8 % (4.4-11.3); NEUTROPHILS # (AUTO) 7.8 (2.1-6.9); NEUTROPHILS % 71.9 % (38.7-80.0); PLATELET COUNT 265 x10e3/uL (140-360); RED BLOOD COUNT 3.12 x10e6/uL (4.3-5.7); RED CELL DISTRIBUTION WIDTH 14.4 % (11.7-14.4)
[2017-04-13 06:58] LABS: ALBUMIN/GLOBULIN RATIO 0.7 (0.8-2.0); ANION GAP 17.2 mmol/L (8-16); CALCIUM 7.4 mg/dL (8.4-10.2); CREATININE, SERUM 4.06 mg/dL (0.72-1.25); POTASSIUM 4.2 mmol/L (3.5-5.1)
[2017-04-13] MEDS: BRIMONIDINE/TIMOLOL (OPTH SOLN 5 ML DRPETTE OP SCH ×2 (08:25→17:00)
[2017-04-13] MEDS: FAMOTIDINE 20 MG/2 ML VIAL IV SCH ×2 (08:25→17:00)
[2017-04-13] MEDS: GLIPIZIDE 5 MG TAB PO SCH (08:26)
[2017-04-13] MEDS: CHOLECALCIFEROL 1,000 UNIT TAB PO SCH (08:26)
[2017-04-13] MEDS: FLUCONAZOLE 100 MG TAB PO SCH (08:26)
[2017-04-13] MEDS: CALCIUM CARBONATE 500 MG CHEWABLE TABS PO SCH ×3 (08:26→22:44)
[2017-04-13] MEDS ORDERED: DEXTROSE 5% 500ML 500 ML IV ONE (09:00)
[2017-04-13] MEDS: LABETALOL HCL IV 5 MG/ML 20ML MDV IV PRN (15:57)
[2017-04-13] MEDS: BIMATOPROST(OPTH) 2.5 ML BOTTLE OP SCH (20:35)
[2017-04-13] MEDS ORDERED: INSULIN DETEMIR 100 UNIT/ML PEN SQ SCH (21:00)
[2017-04-14] VITALS: BP 179/78
[2017-04-14] MEDS: METOCLOPRAMIDE HCL 10 MG/2ML VIAL IV SCH ×3 (01:05→12:17)
[2017-04-14] MEDS: HYDRALAZINE HCL 25 MG TAB PO SCH ×3 (01:36→12:17)
[2017-04-14 04:00] VITALS: BP 172/85
[2017-04-14] MEDS: LABETALOL HCL IV 5 MG/ML 20ML MDV IV PRN (04:30)
[2017-04-14 06:18] LABS: BASOPHILS % 0.1 % (0.0-1.0); EOSINOPHILS # (AUTO) 0.4 (0.0-0.4); EOSINOPHILS % 3.7 % (0.0-6.0); HEMATOCRIT 24.6 % (38.2-49.6); LYMPHOCYTES # (AUTO) 1.7 (1.0-3.2); MEAN CORPUSCULAR HGB CONC 32.5 g/dL (31-35); MEAN CORPUSCULAR VOLUME 92.1 fL (81-99); MONOCYTES # (AUTO) 0.8 (0.2-0.8); MONOCYTES % 7.5 % (4.4-11.3); NEUTROPHILS # (AUTO) 8.1 (2.1-6.9); NEUTROPHILS % 71.8 % (38.7-80.0); PLATELET COUNT 248 x10e3/uL (140-360); RED BLOOD COUNT 2.67 x10e6/uL (4.3-5.7); RED CELL DISTRIBUTION WIDTH 13.7 % (11.7-14.4)
[2017-04-14] MEDS: CEFTRIAXONE SOD 1 GM in WATER STERILE 10ML VIAL 10 ML IV SCH (06:30)
[2017-04-14] MEDS: INSULIN LISPRO 100 UNIT/1 ML 3ML VIAL SQ SCH ×3 (06:32→12:17)
[2017-04-14 06:45] LABS: CALCIUM 7.1 mg/dL (8.4-10.2); CREATININE, SERUM 3.6 mg/dL (0.72-1.25)
[2017-04-14] MEDS: CALCIUM CARBONATE 500 MG CHEWABLE TABS PO SCH (08:04)
[2017-04-14] MEDS: GLIPIZIDE 5 MG TAB PO SCH (08:04)
[2017-04-14] MEDS: CHOLECALCIFEROL 1,000 UNIT TAB PO SCH (08:04)
[2017-04-14] MEDS: FLUCONAZOLE 100 MG TAB PO SCH (08:04)
[2017-04-14] MEDS: FAMOTIDINE 20 MG/2 ML VIAL IV SCH (08:04)
[2017-04-14 08:09] VITALS: BP 129/65
[2017-04-14] MEDS ORDERED: CALCIUM GLUCONATE 10% INJ 9.3 MEQ in SODIUM CHLORIDE 0.9% 100 ML 100 ML IV ONE (09:15)
[2017-04-14] MEDS ORDERED: FUROSEMIDE INJ 10 MG/ML 4 ML VIAL IV ONE (10:00)
[2017-04-14] MEDS: CLONIDINE HCL 0.3MG/24 HR PATCH TOP SCH (11:11)
[2017-04-14] MEDS: BRIMONIDINE/TIMOLOL (OPTH SOLN 5 ML DRPETTE OP SCH (11:17)
[2017-04-14 12:02] VITALS: BP 161/80
--- NOTE | 2017-05-05 18:43 | Operative Report ---
DATE OF PROCEDURE: April 04, 2017 PREOPERATIVE DIAGNOSIS: Aphagia and malnutrition. POSTOPERATIVE DIAGNOSIS: Aphagia and malnutrition. OPERATIVE PROCEDURE: Replacement of gastrostomy tube. ANESTHESIA: General. INDICATIONS: This patient is a 56-year-old male with history of multiple sclerosis with aphagia and malnutrition who had a gastrostomy tube placed yesterday. However, the catheter came out accidentally requiring replacement. All attendant risks discussed with patient and family. DESCRIPTION OF PROCEDURE: Patient was brought to the OR intubated. The abdomen was prepped with alcohol and draped in sterile fashion. The previous upper midline incision is reopened, removing the staple and the fascial stitches removed. Entering the peritoneal cavity, we proceeded to take down the previous stitches anchoring the abdominal wall to the stomach. This freed the stomach and the pursestring stitch, previously removed. A new gastrostomy tube is then passed over the left upper quadrant abdominal wall using a 20-Welsh gastrostomy tube. The tube is then inserted into the same gastrotomy opening on the anterior wall of the stomach. Two pursestring stitches of 2-0 silk is then placed, one outside the other and tied down to keep the tip of the gastrostomy tube in the stomach with balloon inflated. We then proceeded to pull the stomach up against the abdominal wall and 3-0 silk stitches were placed to anchor the stomach to the abdominal wall, peritoneal lining. With the stomach firmly in place, we proceeded to irrigate the peritoneal cavity. Hemostasis achieved. Midline fascia was repaired with running #1 PDS and skin closed with jackeline. Externally, the stitch is anchored to the skin with a 2-0 silk stitch to prevent dislodgement. Dressing applied. The patient was then extubated and transported to the recovery room in guarded condition. Estimated blood loss 5 mL. Job#: [id number]
--- NOTE | 2017-05-18 23:56 | Operative Report ---
DATE OF PROCEDURE: April 01, 2017 REFERRING PHYSICIAN: Dr. Anthony PROCEDURE PERFORMED: Esophagogastroduodenoscopy. INDICATIONS FOR PROCEDURE: PEG tube placement. MEDICATION: Patient was done under MAC. Please see anesthesiologist's note. PROCEDURE: With the patient in the supine position, the flexible fiberoptic Olympus gastroscope was introduced into the esophagus under direct visualization without any difficulty. There was some patchy erythema noted in the distal esophagus. The scope was then advanced with ease into the stomach, and mucosa overlying the antrum and the body revealed some patchy erythema. There was a moderate amount of retained undigested food in the stomach precluding visualization of the fundus and the proximal body. The pylorus appeared to be of normal contour and shape. It was intubated with ease. The scope was advanced all the way to the 2nd portion of the duodenum. The scope was then withdrawn slowly. Mucosa overlying the proximal 2nd portion and the duodenal bulb appeared to be within normal limits. The scope was then withdrawn back into the stomach and retroflexed. The fundus and partially part of the cardia could not be well visualized due to the retained food stuff. The scope was then straightened out, and no safe entry point could be delineated per both external digital palpation and transabdominal illumination for the insertion of the PEG tube. The scope was subsequently withdrawn. Patient tolerated the procedure well. IMPRESSION 1. Distal esophagitis. 2. Gastritis. 3. Moderate amount of retained undigested food in stomach. 4. No safe entry point could be delineated for percutaneous endoscopic gastrostomy tube insertion. The stomach appears to be too posterior and shifted to the right. Will ask interventional radiology to insert a G-tube. Job#: [id number] RI cc:CALI ANTHONY MD
--- NOTE | 2017-05-19 00:58 | Discharge Summary ---
ADMITTING DIAGNOSES 1. Acute kidney injury on chronic kidney disease stage 3. 2. Multiple sclerosis with possible flareup. 3. Hypertension. 4. Type 2 diabetes. DISCHARGE DIAGNOSES 1. Acute kidney injury on chronic kidney disease stage 3. 2. Multiple sclerosis with possible flareup. 3. Hypertension. 4. Type 2 diabetes. 5. Clostridium difficile. 6. Rule out stroke. HISTORY: Patient has a history of hypertension, type 2 diabetes, multiple sclerosis, and glaucoma. HOSPITAL COURSE: A 56-year-old male presented to the ER after going to the clinic for routine blood work and being told his kidneys were failing and he was also having some confusion per his family. On admission, the chest x-ray was negative, brain CT was negative, and MRI of the brain showed moderate supratentorial and infratentorial white matter changes, nonspecific, could be seen. Chronic ischemic changes, demyelinating processes or other leukoencephalopathy. During the hospitalization, the patient became less and less alert and responsive. Neuro was consulted. He ordered a repeat MRI of the brain which could not be done as the patient was fighting and combative at times. Patient came in eating, but throughout hospitalization ate less and less and eventually had to get a PEG placed. Renal following CKD 3 and acute kidney injury. Upon admission, the creatinine was 3.7, the BUN was 39. At the time of discharge, the BUN was 128 and the creatinine was 3.6. As the patient did not progress and continued to get worse, the family decided hospice was the best option for the patient; so, he went home with [facility] and as caregiver. According to neurology, he thought that it was a flareup of MS. Additional brain CT showed that the patient did not have a stroke. All blood cultures and urine cultures were negative. On date of discharge, sodium was 128, potassium was 4.0, WBC was 11.21, hemoglobin 8, and hematocrit 24.6. Patient was discharged home and all IV antibiotics stopped. He will follow up with hospice at home. Dictated by Molly Brownlee NP CALI STRICKLAND MD Job#: [id number] CF
== END 2017-04-14 13:56 | disposition hospice, home (50) | DRG 58 ==
LOC: ER 15:08 → ERHOLD 20:09 → MED/SURG2 20:43
PROVIDERS: ADMIT Internal Medicine; ATTEND Internal Medicine
PROC: 0DJ08ZZ Inspection of Upper Intestinal Tract, Via Natural or Artificial Opening Endoscopic (ICD-10-PCS; 2017-04-01)
PROC: 0DH64UZ Insertion of Feeding Device into Stomach, Percutaneous Endoscopic Approach (ICD-10-PCS; principal; 2017-04-03 17:00)
PROC: 0DH64UZ Insertion of Feeding Device into Stomach, Percutaneous Endoscopic Approach (ICD-10-PCS; 2017-04-04)
DX: G35 Multiple sclerosis (principal); G93.41 Metabolic encephalopathy; A41.9 Sepsis, unspecified organism; E46 Unspecified protein-calorie malnutrition; N17.9 Acute kidney failure, unspecified; N18.4 Chronic kidney disease, stage 4 (severe); E87.0 Hyperosmolality and hypernatremia; K94.23 Gastrostomy malfunction; F03.90 Unspecified dementia, unspecified severity, without behavioral disturbance, psychotic disturbance, mood disturbance, and anxiety; G82.20 Paraplegia, unspecified; G94 Other disorders of brain in diseases classified elsewhere; R13.0 Aphagia; I12.9 Hypertensive chronic kidney disease with stage 1 through stage 4 chronic kidney disease, or unspecified chronic kidney disease; I16.0 Hypertensive urgency; H54.8 Legal blindness, as defined in USA; F32.9 Major depressive disorder, single episode, unspecified; F29 Unspecified psychosis not due to a substance or known physiological condition; R41.0 Disorientation, unspecified; K29.70 Gastritis, unspecified, without bleeding; K20.9 Esophagitis, unspecified; E11.65 Type 2 diabetes mellitus with hyperglycemia; E11.21 Type 2 diabetes mellitus with diabetic nephropathy; E86.0 Dehydration; I10 Essential (primary) hypertension; E87.6 Hypokalemia; E83.51 Hypocalcemia; R19.7 Diarrhea, unspecified
CPT/HCPCS: 36415; 70450; 70551; 71010; 71020; 74176; 80048; 80053; 81001; 82140; 82270; 82306; 82533; 82550; 82553; 82575; 82805; 82948; 83036; 83735; 83880; 83970; 84100; 84439; 84443; 84484; 85025; 85610; 85730; 87040; 87071; 87086; 87205; 87493; 93005; 96361; 96372; 96374; 97139; 99284; J0360; J0610; J0694; J0696; J1630; J1650; J1940; J2001; J2060; J2250; J2765; J2930; J7030; J7050; J7060; J7799